=== PATIENT | male | born 1980 | race Caucasian/White ===

== ENCOUNTER 2016-10-04 11:57 | Emergency (ER) | payer SELFPAY ==
[2016-10-04 12:14] VITALS: RESP 16
[2016-10-04] MEDS ORDERED: SODIUM CHLORIDE 0.9% 1,000 ML IV STA (12:25)
[2016-10-04] MEDS ORDERED: RX INFO: IV CONTRAST WAS GIVEN 1 EACH MISC MISCELLANE PRN (12:25)
[2016-10-04] MEDS ORDERED: HYDROmorphone 1 MG/ML 1 ML SYRINGE IVP STA (12:25)
[2016-10-04 12:59] LABS: Basophils # (A) 0.1 k/uL (0-0.2); Basophils % (A) 1 %; CH 32.7; CHCM 35.6; Eosinophils # (A) 0.2 k/uL (0-0.7); Eosinophils % (A) 4 %; HCT 40.9 % (39.0-53.0); HDW 2.51; HGB 13.9 gm/dL (13.0-17.5); Luc # (Auto) 0.12; Luc % (Auto) 3; Lymphocytes # (A) 1.8 k/uL (1.0-4.8); Lymphocytes % (A) 41 %; MCH 31.3 pg (25.0-35.0); MCV 92.1 fL (80.0-100.0); Mean Platelet Volume 6.7; Monocytes # (A) 0.4 k/uL (0-1.0); Monocytes % (A) 9 %; Neutrophils # (A) 1.9 k/uL (1.3-7.7); Neutrophils % (A) 43 %; RBC 4.44 m/uL (4.30-5.90); RDW 12.5 % (11.5-15.5); WBC 4.5 k/uL (3.8-10.6); WBC (Perox) 4.43
[2016-10-04 13:09] LABS: INR 1.5 (<1.1); Partial Thromboplastin Time 31.9 sec (22.0-30.0); Prothrombin Time 14.7 sec (9.0-12.0)
[2016-10-04 13:10] LABS: ALT 33 U/L (21-72); AST 39 U/L (17-59); Alkaline Phosphatase 77 U/L (38-126); Anion Gap 9 mmol/L; Blood Urea Nitrogen 14 mg/dL (9-20); Calcium 9.2 mg/dL (8.4-10.2); Carbon Dioxide 23 mmol/L (22-30); Chloride 106 mmol/L (98-107); Glucose 141 mg/dL (74-99); Non-African American GFR(MDRD) >60 (>60 ml/min/1.73 sqM); Potassium 3.8 mmol/L (3.5-5.1); Sodium 138 mmol/L (137-145); Total Bilirubin 0.8 mg/dL (0.2-1.3); Total Protein 6.8 g/dL (6.3-8.2)
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
[2016-10-04 13:52] VITALS: PULSE 74
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
[2016-10-04 14:41] VITALS: BP 116/74; TEMP 98.2
== END 2016-10-04 14:42 | disposition home or self-care (01) ==
LOC: EC 11:57
DX: S06.0X0A Concussion without loss of consciousness, initial encounter (principal); M54.2 Cervicalgia; M54.5 Low back pain; V43.52XA Car driver injured in collision with other type car in traffic accident, initial encounter; Y92.410 Unspecified street and highway as the place of occurrence of the external cause
CPT/HCPCS: 99285; 96374; 96361 ×2; 36415; 80053; 85025; 85610; 85730; 72125; 70450; 71260; 74177; J1170; Q9967

== ENCOUNTER 2016-12-10 16:45 | Emergency (ER) | payer OTHER ==
[2016-12-10 17:02] VITALS: BP 139/89; PULSE 75; RESP 18; TEMP 98.2
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
== END 2016-12-10 18:12 | disposition home or self-care (01) ==
LOC: EC 16:45
DX: M54.5 Low back pain (principal); G89.29 Other chronic pain; Z91.041 Radiographic dye allergy status; X50.0XXA Overexertion from strenuous movement or load, initial encounter; Y93.89 Activity, other specified; Y92.69 Other specified industrial and construction area as the place of occurrence of the external cause
CPT/HCPCS: 72100; 99284

== ENCOUNTER → 2017-04-09 | Outpatient (CLI) | payer OTHER ==
--- NOTE | 2017-04-10 08:05 | MR ---
EXAMINATION TYPE: MR cervical spine wo con DATE OF EXAM: 04/09/2017 COMPARISON: 05/10/2015 HISTORY: Radiculopathy, cervical region TECHNIQUE: Multiplanar, multisequence images of the cervical spine were acquired. FINDINGS: There is a kyphosis centered at C5-6. Craniovertebral junction is normal. Spinal cord maint ains normal signal through its visualized course. C2-C3: No evidence for degenerative disc disease. No disc bulge/herniation or protrusion. No Canal stenosis. Foramina are patent bilaterally. C3-C4: There is a small central subligamentous disc herniation extending posterior to C4. No signific ant thecal sac compression is evident. No spinal canal stenosis is present. Uncovertebral joint hyper trophy with with minimal foraminal narrowing bilaterally. C4-C5: Mild disc bulging is anterior thecal sac flattening. No spinal canal stenosis is present neura l foramen are patent. C5-C6: Minimal disc bulge is present with anterior thecal sac flattening. No cord contact is evident. No spinal canal stenosis present. Mild right foraminal narrowing is present. C6-C7: No focal disc herniation is evident. Uncovertebral joint hypertrophy is bilateral mild foramin al narrowing. No spinal canal stenosis present. C7-T1: No focal disc herniation or significant disc bulge is evident. No spinal canal stenosis presen t. Facet hypertrophy and ligamentum flavum laxity contributing to moderate left foraminal narrowing. Findings appear stable from 2014. IMPRESSION: 1. Mild foraminal narrowing secondary to uncovertebral joint hypertrophy. 2. Cervical kyphosis centered at C5-6.
== END | disposition home or self-care (01) ==
LOC: RADMRIMAIN 12:20
PROVIDERS: ATTEND Family Medicine
DX: M99.71 Connective tissue and disc stenosis of intervertebral foramina of cervical region (principal); M40.202 Unspecified kyphosis, cervical region; M53.82 Other specified dorsopathies, cervical region
CPT/HCPCS: 72141

== ENCOUNTER → 2017-07-17 | Outpatient (CLI) | payer OTHER ==
[2017-07-17 14:50] VITALS: BP 123/77; PULSE 82; RESP 16
--- NOTE | 2017-07-17 17:23 | P.CONS ---
History of Present Illness - Reason for Consult Consult date: 07/17/17 - Chief Complaint Neck pain - History of Present Illness This is a 46-year-old gentleman with chronic history of neck pain with radiation to the upper thoracic spine area. The pain gets worse by neck movements. The patient tried physical therapy previously which did not give him good relief of pain. He describes his pain as an aching pain that keeps him up at night. The patient denies any bowel or bladder dysfunction or any weight loss. He occasionally feels numbness and tingling in both arms in no specific neurologic distribution. The patient tried management he many years ago but he did not like being on stronger opioids and is trying to avoid that especially with history of alcohol abuse previously. The patient denies any weakness in his upper or lower extremities. The cervical spine MRI showed uncovertebral joint hypertrophy bilaterally at C6- C7 level with similar changes at the C7-T1 level. It does show also kyphosis at C5-6 level. Past Medical History Past Medical History: No Reported History, Chest Pain / Angina Additional Past Medical History / Comment(s): Buldging disk in neck History of Any Multi-Drug Resistant Organisms: None Reported Past Surgical History: No Surgical Hx Reported Additional Past Surgical History / Comment(s): hand surgery Past Anesthesia/Blood Transfusion Reactions: No Reported Reaction Past Psychological History: Anxiety, Depression Smoking Status: Former smoker Past Alcohol Use History: Abuse, Heavy Additional Past Alcohol Use History / Comment(s): CURRENTLY 7-10 BEER WEEKLY- DOWN FROM 15 BEER DAILY. Past Drug Use History: Marijuana Medications and Allergies Allergies Allergy/AdvReac Type Severity Reaction Status Date / Time IV contrast AdvReac Nausea & Uncoded 07/17/17 14:34 Vomiting Physical Exam Vitals: Vital Signs Pulse Resp BP Pulse Ox 07/17/17 14:35 82 16 123/77 96 Intake and Output 07/17/17 07/17/17 07/17/17 06:59 14:59 22:59 Other: Weight 74.843 kg Patient Weight 07/18/17 06:59 Weight 74.843 kg - Constitutional General appearance: thin - EENT Eyes: PERRLA - Respiratory Respiratory: bilateral: CTA - Cardiovascular Rhythm: regular - Neurologic Neurologic: CNII-XII intact - Psychiatric Psychiatric: A&O x's 3, appropriate affect, intact judgment & insight Neuro exam of the upper extremities showed normal and symmetrical deep tendon reflexes and muscle strength. He has decreased range of motion of the cervical spine especially for right rotation. He has tenderness in the cervical and upper thoracic paravertebral area bilaterally. Assessment and Plan Plan: This is a 36-year-old gentleman with history of heavy alcohol usage, and occasional marijuana usage. Diagnosis: Cervical spondylosis without myelopathy, not responsive to physical therapy and conservative treatment. I think the patient may benefit from getting diagnostic cervical medial branch block for the medial branches C5, C6, and C7 bilaterally. The procedure was explained to the patient and his questions were answered. I agree with the patient about his decision to avoid using any opioids in the treatment plan. I thank you for the referral.
== END | disposition home or self-care (01) ==
LOC: PNWHC3 13:23
PROVIDERS: ATTEND Anesthesiology
DX: G89.29 Other chronic pain (principal); M54.2 Cervicalgia; M47.812 Spondylosis without myelopathy or radiculopathy, cervical region; M40.202 Unspecified kyphosis, cervical region; F12.90 Cannabis use, unspecified, uncomplicated; F10.20 Alcohol dependence, uncomplicated; F41.9 Anxiety disorder, unspecified; F32.9 Major depressive disorder, single episode, unspecified; Z98.890 Other specified postprocedural states; Z87.891 Personal history of nicotine dependence; Z79.891 Long term (current) use of opiate analgesic
CPT/HCPCS: 99211

== ENCOUNTER 2017-09-02 06:15 | Day surgery (SDC) | payer OTHER ==
[2017-08-29 15:29] VITALS: BMI 20.5
[2017-09-02 06:35] VITALS: RESP 18; TEMP 98.2
[2017-09-02] MEDS ORDERED: LACTATED RINGERS 1,000 ML IV ONE (06:41)
[2017-09-02] MEDS ORDERED: LIDOCAINE 1% 20 ML VIAL (10MG/ML) FOR IV START INTRADERMA ONE (06:42)
[2017-09-02] MEDS ORDERED: IV FLUID CONTINUATION 1,000 ML IV ONE (07:44)
[2017-09-02] MEDS ORDERED: LACTATED RINGERS 1,000 ML IV SCH (07:45)
--- NOTE | 2017-09-02 07:52 | FL ---
Fluoroscopy HISTORY: Pain 8 seconds fluoroscopy time supplied to the referring clinician. 6 intraoperative C-arm images docume nt the procedure. See dictated report from anesthesia.
[2017-09-02 08:43] VITALS: BP 117/81; PULSE 77
--- NOTE | 2017-09-02 10:55 | P.PCN ---
Date of Procedure: 09/02/17 Surgeon: Blake Shankar Pathology: none sent Condition: stable Disposition: PACU Description of Procedure: PREOPERATIVE DIAGNOSIS: Cervical spondylosis without myelopathy, cervicogenic headache. POSTOPERATIVE DIAGNOSIS: same PROCEDURES: Diagnostic bilateral C5-C6, C6-C7, C7-T1 medial branch block with fluoroscopic guidance ANESTHESIA: Local with 1% lidocaine; conscious sedation EBL: Minimal PROCEDURE INDICATION: This is a patient with neck pain and headaches secondary to cervical arthropathy unresponsive to more conservative treatments. PROCEDURE DESCRIPTION / TECHNIQUE: The patient was seen and identified in the preoperative area. Risks, benefits, complications, and alternatives were discussed with the patient (including but not limited to incomplete pain relief , bleeding, infection, nerve damage, and allergies to medications), the patient agreed to proceed with the procedure and signed the consent after all questions were answered. IV was started. Vital signs remained stable throughout the procedure. Patient was taken to the OR and time out was completed. The patient was placed in the prone position on the procedure table. A pillow was placed under the patients chest to increase the cervical interlaminar space. The cervical area was prepped and draped in the usual sterile fashion. Critical pause was taken. Vital signs were closely monitored during the procedure. Conscious sedation was used during the procedure to decrease patients anxiety. Using cross-table lateral fluoroscopy, the centroid of the trapezoid of right C5 , was identified, marked, and localized with 1% lidocaine. Subsequently, a 22- gauge 3.5-inch spinal needle was advanced guided by fluoroscopy to the centroid of the trapezoid of C5. Needle tip position was confirmed at the centroid of the trapezoids of C5 with anteroposterior fluoroscopy. Subsequently, 1 ml of a combination of 10 mg Decadron and 5 ml of preservative-free Bupivacaine 0.5% was injected after negative aspiration for blood and CSF. Needle was then removed intact; the same procedure was repeated at the right C6 and C7 levels and then the left C5, C6, and C7 levels. COMPLICATIONS: No acute complications. COMMENTS: DISPOSITION / PLANS: The patient was placed in a supine position and transferred to the recovery area in a stable condition for observation and was discharged from the recovery room after meeting discharge criteria. Home discharge instructions given to the patient by the staff. The patient was reexamined prior to discharge and there were no issues. The patient will schedule a repeat CMBB in 3-4 weeks.
== END 2017-09-02 08:56 | disposition home or self-care (01) ==
LOC: ORPAIN 06:15
PROVIDERS: ATTEND Anesthesiology
DX: M47.812 Spondylosis without myelopathy or radiculopathy, cervical region (principal); R51 Headache; Z91.041 Radiographic dye allergy status
CPT/HCPCS: 64490; 64491; 64492; J2250; J1100; 99152

== ENCOUNTER → 2017-10-08 | Outpatient (CLI) | payer OTHER ==
--- NOTE | 2017-10-09 09:53 | MR ---
MR right foot without contrast HISTORY: Right foot pain Multiplanar multisequence imaging through the right foot There is abnormal signal at the site of patient's symptomatology at the level of the distal second me tatarsal extending into the region between the first and second digits, intermediate signal is presen t on T1, increased signal on T2-weighted sequence is present. No contrast administered to assess for enhancement. No evident volar plate disruption. No fluid collections are evident. Joint fluid present along the digits is thought to be normal. IMPRESSION: Findings are not classic for Cohen's neuroma or indicative or volar plate disruption, hi gh on differential from patient's history. Findings could be indicative of callus formation although more typical of a diabetic patient. Findings not typical of fibromatosis. Consider reaction to mechan ical stress. Follow-up as indicated. This case received internal peer review.
== END ==
LOC: RADMRIMAIN 16:43
PROVIDERS: ATTEND Orthopaedic Surgery Foot and Ankle Surgery
DX: M79.671 Pain in right foot (principal)

== ENCOUNTER → 2018-04-07 | Outpatient (CLI) | payer OTHER ==
--- NOTE | 2018-04-07 13:52 | US ---
EXAMINATION TYPE: US extremity nonvasc complete RT DATE OF EXAM: 04/07/2018 COMPARISON: Correlation MRI foot 10/08/2017 CLINICAL HISTORY: 37-year-old male G57.51 Nerve Damage Tarsal Tunnel. Additional customer support executive obtained history: Last August was kneeling and stood up suddenly, felt pop and pain at ball of foot, prior MRI here, US at [facility] showed pathology per pt, scheduled for MRI he re Apr 21, scheduled for foot surgery after that. TECHNIQUE: Targeted sonographic examination of the tarsal tunnel, medial ankle followed by targeted u ltrasound at the site of patient's pain along the ball of the foot. Findings: Multiple ultrasound images are obtained of the medial right ankle for assessment of the tarsal tunnel . Posterior tibial and flexor digitorum longus tendons are visualized as well as the adjacent neurova scular bundle. No abnormal thickening or enlargement is seen of the tibial nerve to suggest a posttra umatic neuroma. Additional targeted scanning along the ball of the foot at the patient directed site of pain correspo nding to the third webspace between the third and fourth distal metatarsals. The customer support executive identifi es a somewhat lobulated hypoechoic structure measuring 1.8 x 0.8 cm at this site. IMPRESSION: 1. Targeted scanning medial ankle along the tarsal tunnel shows no evidence for posttraumatic neuroma of the tibial nerve. 2. Targeted scanning along the ball of the foot at the patient directed site of pain corresponds to t he third webspace. There is a lobulated structure here measuring 1.8 x 0.8 cm equivocal between an in termetatarsal bursal effusion or Cohen's neuroma. Clinically correlate.
== END | disposition home or self-care (01) ==
LOC: RADUSWWP 09:44
PROVIDERS: ATTEND Orthopaedic Surgery
DX: G57.51 Tarsal tunnel syndrome, right lower limb (principal); M89.8X7 Other specified disorders of bone, ankle and foot

== ENCOUNTER 2018-04-21 19:43 | Emergency (ER) | payer OTHER ==
[2018-04-21 20:10] VITALS: TEMP 99.4
[2018-04-21] MEDS ORDERED: SODIUM CHLORIDE 0.9% 1,000 ML IV STA (20:40)
[2018-04-21] MEDS ORDERED: ONDANSETRON 4 MG/2 ML VIAL IVP STA (20:40)
[2018-04-21] MEDS ORDERED: KETOROLAC 30 MG/ML 1 ML VIAL IVP STA (20:41)
[2018-04-21] MEDS ORDERED: ACETAMINOPHEN TAB 500 MG TAB PO STA (20:41)
--- NOTE | 2018-04-21 20:53 | ED ---
Fever HPI - General Chief Complaint: Fever Stated Complaint: Possible flu Time Seen by Provider: 04/21/18 20:09 Source: patient, RN notes reviewed, old records reviewed Mode of arrival: ambulatory Limitations: no limitations - History of Present Illness Initial Comments: Patient is a 37 yea rold male, whom presents to ED with CC of chills, vomiting, and body aches for one day. Patient is concerned that he may have the flu. He denies abdominal pain or tenderness. Patient presents to ED with his whife whom reports he has been up all night. Patient has had a slight and sorethroat. - Related Data Previous Rx's Medication Instructions Recorded Ondansetron Odt [Zofran Odt] 4 mg PO Q8HR PRN #12 tab 04/21/18 Allergies Allergy/AdvReac Type Severity Reaction Status Date / Time Iodinated Contrast- Oral and AdvReac Nausea & Verified 04/21/18 20:21 IV Dye Vomiting Review of Systems ROS Statement: Those systems with pertinent positive or pertinent negative responses have been documented in the HPI. ROS Other: All systems not noted in ROS Statement are negative. 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 PAIN IN UPPER BACK ALSO. OCC NT IN ARMS/HANDS. RECENT INJURY RT FOOT, POSS TORN TENDON. History of Any Multi-Drug Resistant Organisms: None Reported Past Surgical History: Orthopedic Surgery Additional Past Surgical History / Comment(s): RT 3RD FINGER Surgery. Past Anesthesia/Blood Transfusion Reactions: No Reported Reaction Past Psychological History: Anxiety, Depression Smoking Status: Former smoker Past Alcohol Use History: Occasional Past Drug Use History: None Reported - Past Family History Mother Family Medical History: No Reported History General Exam - General Exam Comments Initial Comments: 37 year old male, wearing mask, appears in no acute distress. Limitations: no limitations General appearance: alert, in no apparent distress Head exam: Present: atraumatic, normocephalic, normal inspection Eye exam: Present: normal appearance, PERRL, EOMI. Absent: scleral icterus, conjunctival injection, periorbital swelling ENT exam: Present: normal exam, mucous membranes moist. Absent: normal oropharynx (minimal erythema, no exudate) Neck exam: Present: normal inspection. Absent: tenderness, meningismus, lymphadenopathy Respiratory exam: Present: normal lung sounds bilaterally. Absent: respiratory distress, wheezes, rales, rhonchi, stridor Cardiovascular Exam: Present: regular rate, normal rhythm, normal heart sounds. Absent: systolic murmur, diastolic murmur, rubs, gallop, clicks GI/Abdominal exam: Present: soft, normal bowel sounds. Absent: distended, tenderness, guarding, rebound, rigid Back exam: Present: normal inspection Neurological exam: Present: alert, oriented X3, CN II-XII intact Psychiatric exam: Present: normal affect, normal mood Skin exam: Present: warm, dry, intact, normal color. Absent: rash Course Vital Signs 04/21/18 04/21/18 04/21/18 20:06 20:10 22:23 Temperature 99.4 F 99.4 F Pulse Rate 80 73 Respiratory 20 16 Rate Blood Pressure 108/98 114/82 O2 Sat by Pulse 99 99 Oximetry Medical Decision Making - Medical Decision Making bassamnt is a 37 year old male with body aches, vomiting and low grade fever for one day.Patient has noabdominal pain or tenderness. Patient was started on iv fluids, patient has not had any motrin or tylenol. Was given some. At this time labs were unremakeagle. Patient feels much better. Discussed influenza testing is negatie. Discussed he is likely suffering from viral gastroenteritis. Discussed that if patient started to have one specific bother symptoms fdhe can return for reevaluation for testing and radiology at that time. Patient agrees. will discharge him with zofran - Lab Data Result diagrams: 04/21/18 21:05 04/21/18 21:05 Lab Results 04/21/18 04/21/18 04/21/18 Range/Units 21:05 21:05 21:05 WBC 12.3 H (3.8-10.6) k/uL RBC 4.96 (4.30-5.90) m/uL Hgb 15.4 (13.0-17.5) gm/dL Hct 46.9 (39.0-53.0) % MCV 94.6 (80.0-100.0) fL MCH 31.1 (25.0-35.0) pg MCHC 32.9 (31.0-37.0) g/dL RDW 12.0 (11.5-15.5) % Plt Count 313 (150-450) k/uL Neutrophils % 69 % Lymphocytes % 19 % Monocytes % 8 % Eosinophils % 2 % Basophils % 1 % Neutrophils # 8.5 H (1.3-7.7) k/uL Lymphocytes # 2.4 (1.0-4.8) k/uL Monocytes # 0.9 (0-1.0) k/uL Eosinophils # 0.2 (0-0.7) k/uL Basophils # 0.1 (0-0.2) k/uL Sodium 137 (137-145) mmol/L Potassium 4.5 (3.5-5.1) mmol/L Chloride 102 (98-107) mmol/L Carbon Dioxide 28 (22-30) mmol/L Anion Gap 7 mmol/L BUN 13 (9-20) mg/dL Creatinine 0.75 (0.66-1.25) mg/dL Est GFR (CKD-EPI)AfAm >90 (>60 ml/min/1.73 sqM) Est GFR (CKD-EPI)NonAf >90 (>60 ml/min/1.73 sqM) Glucose 82 (74-99) mg/dL Calcium 10.1 (8.4-10.2) mg/dL Total Bilirubin 1.1 (0.2-1.3) mg/dL AST 57 (17-59) U/L ALT 53 (21-72) U/L Alkaline Phosphatase 84 (38-126) U/L Total Protein 7.5 (6.3-8.2) g/dL Albumin 4.3 (3.5-5.0) g/dL Amylase 84 (30-110) U/L Lipase 94 (23-300) U/L Urine Color Urine Appearance (Clear) Urine pH (5.0-8.0) Ur Specific [place] (1.001-1.035) Urine Protein (Negative) Urine Glucose (UA) (Negative) Urine Ketones (Negative) Urine Blood (Negative) Urine Nitrite (Negative) Urine Bilirubin (Negative) Urine Urobilinogen (<2.0) mg/dL Ur Leukocyte Esterase (Negative) Influenza Type A RNA Not Detected (Not Detectd) Influenza Type B (PCR) Not Detected (Not Detectd) 04/21/18 Range/Units 21:42 WBC (3.8-10.6) k/uL RBC (4.30-5.90) m/uL Hgb (13.0-17.5) gm/dL Hct (39.0-53.0) % MCV (80.0-100.0) fL MCH (25.0-35.0) pg MCHC (31.0-37.0) g/dL RDW (11.5-15.5) % Plt Count (150-450) k/uL Neutrophils % % Lymphocytes % % Monocytes % % Eosinophils % % Basophils % % Neutrophils # (1.3-7.7) k/uL Lymphocytes # (1.0-4.8) k/uL Monocytes # (0-1.0) k/uL Eosinophils # (0-0.7) k/uL Basophils # (0-0.2) k/uL Sodium (137-145) mmol/L Potassium (3.5-5.1) mmol/L Chloride (98-107) mmol/L Carbon Dioxide (22-30) mmol/L Anion Gap mmol/L BUN (9-20) mg/dL Creatinine (0.66-1.25) mg/dL Est GFR (CKD-EPI)AfAm (>60 ml/min/1.73 sqM) Est GFR (CKD-EPI)NonAf (>60 ml/min/1.73 sqM) Glucose (74-99) mg/dL Calcium (8.4-10.2) mg/dL Total Bilirubin (0.2-1.3) mg/dL AST (17-59) U/L ALT (21-72) U/L Alkaline Phosphatase (38-126) U/L Total Protein (6.3-8.2) g/dL Albumin (3.5-5.0) g/dL Amylase (30-110) U/L Lipase (23-300) U/L Urine Color Yellow Urine Appearance Clear (Clear) Urine pH 7.5 (5.0-8.0) Ur Specific [place] 1.009 (1.001-1.035) Urine Protein Negative (Negative) Urine Glucose (UA) Negative (Negative) Urine Ketones Negative (Negative) Urine Blood Negative (Negative) Urine Nitrite Negative (Negative) Urine Bilirubin Negative (Negative) Urine Urobilinogen <2.0 (<2.0) mg/dL Ur Leukocyte Esterase Negative (Negative) Influenza Type A RNA (Not Detectd) Influenza Type B (PCR) (Not Detectd) Disposition Clinical Impression: Nausea & vomiting, Viral syndrome Disposition: HOME SELF-CARE Condition: Good Instructions: Gastroenteritis (ED) Additional Instructions: Patient was rest, follow-up with primary care provider. There is any alarming signs or symptoms occur please return to emergency department for reevaluation. Prescriptions: Ondansetron Odt [Zofran Odt] 4 mg PO Q8HR PRN #12 tab PRN Reason: Nausea Is patient prescribed a controlled substance at d/c from ED?: No Referrals: Pawan Quintana Jr, DO [Primary Care Provider] - 1-2 days Time of Disposition: 22:16
[2018-04-21 21:27] LABS: Basophils # (A) 0.1 k/uL (0-0.2); Basophils % (A) 1 %; Eosinophils # (A) 0.2 k/uL (0-0.7); Eosinophils % (A) 2 %; HCT 46.9 % (39.0-53.0); HGB 15.4 gm/dL (13.0-17.5); Lymphocytes # (A) 2.4 k/uL (1.0-4.8); Lymphocytes % (A) 19 %; MCH 31.1 pg (25.0-35.0); MCHC 32.9 g/dL (31.0-37.0); MCV 94.6 fL (80.0-100.0); Mean Platelet Volume 6.2; Monocytes # (A) 0.9 k/uL (0-1.0); Monocytes % (A) 8 %; Neutrophils # (A) 8.5 k/uL (1.3-7.7); Neutrophils % (A) 69 %; Platelet Count 313 k/uL (150-450); RBC 4.96 m/uL (4.30-5.90); WBC 12.3 k/uL (3.8-10.6)
[2018-04-21 21:34] LABS: ALT 53 U/L (21-72); AST 57 U/L (17-59); Albumin 4.3 g/dL (3.5-5.0); Alkaline Phosphatase 84 U/L (38-126); Amylase 84 U/L (30-110); Anion Gap 7 mmol/L; Blood Urea Nitrogen 13 mg/dL (9-20); Calcium 10.1 mg/dL (8.4-10.2); Carbon Dioxide 28 mmol/L (22-30); Chloride 102 mmol/L (98-107); Glucose 82 mg/dL (74-99); Lipase 94 U/L (23-300); Potassium 4.5 mmol/L (3.5-5.1); Sodium 137 mmol/L (137-145); Total Bilirubin 1.1 mg/dL (0.2-1.3); Total Protein 7.5 g/dL (6.3-8.2)
[2018-04-21 21:48] LABS: Appearance,Urine Clear (Clear); Bilirubin,Urine Negative (Negative); Blood,Urine Negative (Negative); Color,Urine Yellow; Glucose,Urine (UA) Negative (Negative); Ketones,Urine Negative (Negative); Leukocyte Esterase,Urine Negative (Negative); Nitrite,Urine Negative (Negative); PH, Urine 7.5 (5.0-8.0); Protein,Urine Negative (Negative); Specific Gravity,Urine 1.009 (1.001-1.035); Urobilinogen,Urine <2.0 mg/dL (<2.0)
[2018-04-21 22:28] VITALS: BP 114/82; PULSE 73; RESP 16
== END 2018-04-21 22:23 | disposition home or self-care (01) ==
LOC: EC 19:43
DX: B34.9 Viral infection, unspecified (principal); R11.2 Nausea with vomiting, unspecified; Z87.891 Personal history of nicotine dependence; Z91.041 Radiographic dye allergy status
CPT/HCPCS: 99284 ×2; 96374 ×2; 96375 ×2; 96361 ×2; 36415; 80053; 82150; 83690; 85025; 81003; 87502; J2405; J1885

== ENCOUNTER → 2018-04-21 | Outpatient (CLI) | payer OTHER ==
--- NOTE | 2018-04-22 02:54 | MR ---
EXAMINATION TYPE: MR ankle RT wo con DATE OF EXAM: 04/21/2018 COMPARISON: HISTORY: Tarsal Tunnel Nerve damage Standard multiplanar, multisequence MRI departmental protocol Multiplanar, multisequence images of the right ankle were acquired. FINDINGS: The ankle mortise is anatomic. The collateral ligaments appear intact. The medial and later al flexor tendons of the ankle appear intact. There is mild ankle joint effusion. The Achilles tendon is intact. The intertarsal joint spaces are fairly normal. I see no focal bone destruction. There is some low signal along the posterior tibial tendon near its insertion on the navicular and cuneiform bone. There is slight thickening. The other flexor medial tendons appear intact. I see no focal bone destruction. IMPRESSION: There is some low signal and thickening of the posterior tibial tendon on the medial aspect of the mi dfoot that could relate to scar tissue. Posterior tibial nerve is probably involved. No fracture seen . No evidence of ligamentous tear. Small ankle joint effusion consistent with minimal synovitis.
== END | disposition home or self-care (01) ==
LOC: RADMRIMAIN 14:06
PROVIDERS: ATTEND Orthopaedic Surgery
DX: M67.873 Other specified disorders of tendon, right ankle and foot (principal); M25.471 Effusion, right ankle

== ENCOUNTER 2018-10-13 22:20 | Emergency (ER) | payer OTHER ==
[2018-10-13] MEDS ORDERED: SODIUM CHLORIDE 0.9% 1,000 ML IV STA (22:34)
[2018-10-13] MEDS ORDERED: DIAZEPAM 5 MG/ML 2 ML INJ IVP STA (22:34)
[2018-10-13] MEDS ORDERED: GLUCAGON 1 MG/ML VIAL IVP STA (22:34)
--- NOTE | 2018-10-13 22:34 | ED ---
Nausea/Vomiting/Diarrhea HPI - General Chief complaint: Nausea/Vomiting/Diarrhea Stated complaint: Something stuck in throat Time Seen by Provider: 10/13/18 22:28 Source: patient, family, RN notes reviewed, old records reviewed Mode of arrival: ambulatory Limitations: no limitations - History of Present Illness Initial comments: This is a 38-year-old male the ER for evaluation. Patient resents today for evaluation of something caught in his throat, has had have episodes happened before was able to bypass and get the food to swallow. Patient states he is eating some steak tonight when this episode began. Feels like her stomach on the middle of his chest wall. No shortness of breath. Denies any complaints. Patient is unable to swallow or drink without spitting everything back up MD complaint: nausea (After eating secondary to esophageal foreign body) -: hour(s) Description of Vomiting: watery (The patient drinks water it comes back up unable to tolerate secretions) Associated Abdominal Pain: Yes (Just feels discomfort substernally) Radiation: none Severity: moderate Severity scale (1-10): 4 Worsens with: eating Associated Symptoms: denies other symptoms - Related Data Home Medications Medication Instructions Recorded Confirmed No Known Home Medications 10/13/18 10/13/18 Allergies Allergy/AdvReac Type Severity Reaction Status Date / Time Iodinated Contrast- Oral and AdvReac Nausea & Verified 10/13/18 22:33 IV Dye Vomiting Review of Systems ROS Statement: Those systems with pertinent positive or pertinent negative responses have been documented in the HPI. ROS Other: All systems not noted in ROS Statement are negative. 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 PAIN IN UPP ER BACK ALSO. OCC NT IN ARMS/HANDS. RECENT INJURY RT FOOT, POSS TORN TENDON. History of Any Multi-Drug Resistant Organisms: None Reported Past Surgical History: Orthopedic Surgery Additional Past Surgical History / Comment(s): RT 3RD FINGER Surgery. Past Anesthesia/Blood Transfusion Reactions: No Reported Reaction Past Psychological History: Anxiety, Depression Smoking Status: Former smoker Past Alcohol Use History: Occasional Past Drug Use History: None Reported - Past Family History Mother Family Medical History: No Reported History General Exam Limitations: no limitations General appearance: alert, in no apparent distress Head exam: Present: atraumatic, normocephalic, normal inspection Eye exam: Present: normal appearance, PERRL, EOMI. Absent: scleral icterus, conjunctival injection, periorbital swelling ENT exam: Present: normal exam, mucous membranes moist Neck exam: Present: normal inspection. Absent: tenderness, meningismus, lymphadenopathy Respiratory exam: Present: normal lung sounds bilaterally. Absent: respiratory distress, wheezes, rales, rhonchi, stridor Cardiovascular Exam: Present: regular rate, normal rhythm, normal heart sounds. Absent: systolic murmur, diastolic murmur, rubs, gallop, clicks GI/Abdominal exam: Present: soft, normal bowel sounds. Absent: distended, tenderness, guarding, rebound, rigid Extremities exam: Present: normal inspection, full ROM, normal capillary refill. Absent: tenderness, pedal edema, joint swelling, calf tenderness Back exam: Present: normal inspection Neurological exam: Present: alert, oriented X3, CN II-XII intact Psychiatric exam: Present: normal affect, normal mood Skin exam: Present: warm, dry, intact, normal color. Absent: rash Course Vital Signs 10/13/18 22:21 Temperature 98.4 F Pulse Rate 119 H Respiratory 20 Rate Blood Pressure 91/63 O2 Sat by Pulse 96 Oximetry - Reevaluation(s) Reevaluation #1: 10/13/18 23:41 Medical record reviewed Reevaluation #2: 10/13/18 23:41 Patient unable to tolerate secretions or swallow liquids, they do come right back up Reevaluation #3: 10/13/18 23:42 GI: For evaluation of patient Medical Decision Making - Medical Decision Making 38 male the ER for esophageal foreign body. Foreign bodies resolved by GI here in the ER patient can be discharged home - Lab Data Result diagrams: 10/13/18 22:36 10/13/18 22:36 Lab Results 10/13/18 10/13/18 Range/Units 22:36 22:36 WBC 10.9 H (3.8-10.6) k/uL RBC 5.17 (4.30-5.90) m/uL Hgb 15.9 (13.0-17.5) gm/dL Hct 47.2 (39.0-53.0) % MCV 91.4 (80.0-100.0) fL MCH 30.8 (25.0-35.0) pg MCHC 33.6 (31.0-37.0) g/dL RDW 13.2 (11.5-15.5) % Plt Count 379 (150-450) k/uL Neutrophils % 64 % Lymphocytes % 25 % Monocytes % 5 % Eosinophils % 3 % Basophils % 1 % Neutrophils # 7.0 (1.3-7.7) k/uL Lymphocytes # 2.7 (1.0-4.8) k/uL Monocytes # 0.6 (0-1.0) k/uL Eosinophils # 0.3 (0-0.7) k/uL Basophils # 0.1 (0-0.2) k/uL Sodium 143 (137-145) mmol/L Potassium 4.4 (3.5-5.1) mmol/L Chloride 108 H (98-107) mmol/L Carbon Dioxide 24 (22-30) mmol/L Anion Gap 11 mmol/L BUN 14 (9-20) mg/dL Creatinine 0.63 L (0.66-1.25) mg/dL Est GFR (CKD-EPI)AfAm >90 (>60 ml/min/1.73 sqM) Est GFR (CKD-EPI)NonAf >90 (>60 ml/min/1.73 sqM) Glucose 72 L (74-99) mg/dL Calcium 9.6 (8.4-10.2) mg/dL Total Bilirubin 0.6 (0.2-1.3) mg/dL AST 45 (17-59) U/L ALT 38 (21-72) U/L Alkaline Phosphatase 98 (38-126) U/L Total Protein 7.6 (6.3-8.2) g/dL Albumin 4.7 (3.5-5.0) g/dL Lipase 96 (23-300) U/L Disposition Clinical Impression: Nausea & vomiting, Esophageal foreign body Disposition: HOME SELF-CARE Condition: Good Instructions (If sedation given, give patient instructions): Esophageal Foreign Body (ED) Is patient prescribed a controlled substance at d/c from ED?: No Referrals: Pawan Quintana Jr, [Primary Care Provider] - 1-2 days
[2018-10-13 22:48] LABS: Basophils # (A) 0.1 k/uL (0-0.2); Basophils % (A) 1 %; Eosinophils # (A) 0.3 k/uL (0-0.7); Eosinophils % (A) 3 %; HCT 47.2 % (39.0-53.0); HGB 15.9 gm/dL (13.0-17.5); Lymphocytes # (A) 2.7 k/uL (1.0-4.8); Lymphocytes % (A) 25 %; MCH 30.8 pg (25.0-35.0); MCHC 33.6 g/dL (31.0-37.0); MCV 91.4 fL (80.0-100.0); Mean Platelet Volume 6.5; Monocytes # (A) 0.6 k/uL (0-1.0); Monocytes % (A) 5 %; Neutrophils % (A) 64 %; Platelet Count 379 k/uL (150-450); RBC 5.17 m/uL (4.30-5.90); RDW 13.2 % (11.5-15.5); WBC 10.9 k/uL (3.8-10.6)
[2018-10-13 22:59] LABS: ALT 38 U/L (21-72); AST 45 U/L (17-59); Albumin 4.7 g/dL (3.5-5.0); Alkaline Phosphatase 98 U/L (38-126); Anion Gap 11 mmol/L; Blood Urea Nitrogen 14 mg/dL (9-20); Calcium 9.6 mg/dL (8.4-10.2); Carbon Dioxide 24 mmol/L (22-30); Chloride 108 mmol/L (98-107); Glucose 72 mg/dL (74-99); Lipase 96 U/L (23-300); Potassium 4.4 mmol/L (3.5-5.1); Sodium 143 mmol/L (137-145); Total Bilirubin 0.6 mg/dL (0.2-1.3); Total Protein 7.6 g/dL (6.3-8.2)
--- NOTE | 2018-10-13 23:19 | XR ---
EXAM: XR Chest, 1 View CLINICAL HISTORY: Pain TECHNIQUE: Frontal view of the chest. COMPARISON: 11/01/15 FINDINGS: Lungs: Unremarkable. No consolidation. Pleural space: Unremarkable. No pneumothorax. Heart: Unremarkable. No cardiomegaly. Mediastinum: Unremarkable. Bones/joints: Unremarkable. IMPRESSION: No acute abnormality. No change from prior study
[2018-10-14] MEDS ORDERED: SODIUM CHLORIDE 0.9% 500 ML 500 ML IV ONE (00:49)
[2018-10-14] MEDS ORDERED: LIDOCAINE 1% INJ 10MG/ML (20 ML MDV) ONE (01:23)
[2018-10-14] MEDS ORDERED: PROPOFOL 10 MG/ML 20 ML VIAL IV ONE (01:23)
[2018-10-14] MEDS ORDERED: fentaNYL (PF) 50 MCG/ML 2 ML AMP ONE (01:23)
[2018-10-14 02:35] VITALS: BP 109/69; PULSE 89; RESP 16; TEMP 98.1
--- NOTE | 2018-10-14 02:40 | P.CONS ---
History of Present Illness - Reason for Consult Consult date: 10/14/18 Foreign body Requesting physician: Willard Castillo - Chief Complaint Food in esophagus - History of Present Illness 38-year-old male who presented to the hospital with complaints of a foreign body stuck in his esophagus. The patient reports that he had been eating all day but that he presented to the hospital after developing nausea, vomiting and inability to tolerate food or liquids after eating a piece of steak. He reports trying to get the food down with [place] and water but was unable to do so. He reports 1 similar episode in the past also with steak during which he drank a lot of water and was able to have resolution of his symptoms. He denies ever having to present to the hospital with these complaints. He denies any dysphagia or reflux at baseline. The patient is not on PPI therapy or H2 antagonist therapy at home. He is never had endoscopy in the past. Review of Systems REVIEW OF SYSTEMS: CONSTITUTIONAL: Denies any fevers, chills, weight change or fatigue. CARDIOVASCULAR: Denies any chest pain, palpitations high or low blood pressures RESPIRATORY: Denies any shortness of breath, hemoptysis or cough. GENITOURINARY: No dysuria or hematuria. MUSCULOSKELETAL: No weakness reported. SKIN: Denies any new rashes or lesions, jaundice or pallor. PSYCHIATRIC: Denies any depression or anxiety. NEUROLOGY: Denies headache, denies any new focal deficits. EARS/NOSE/THROAT: No recent hearing change, congestion, nasal discharge or sore throat. EYES: No pain in eyes, discharge or change in vision. GASTROINTESTINAL: As per HPI. 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 PAIN IN UPPER BACK ALSO. OCC NT IN ARMS/HANDS. RECENT INJURY RT FOOT, POSS TORN TENDON. History of Any Multi-Drug Resistant Organisms: None Reported Past Surgical History: Orthopedic Surgery Additional Past Surgical History / Comment(s): RT 3RD FINGER Surgery. Past Anesthesia/Blood Transfusion Reactions: No Reported Reaction Past Psychological History: Anxiety, Depression Smoking Status: Former smoker Past Alcohol Use History: Occasional Past Drug Use History: None Reported Additional History: Family history: Reviewed with the patient and noncontributory to current medical presentation. - Past Family History Mother Family Medical History: No Reported History Medications and Allergies Home Medications Medication Instructions Recorded Confirmed Type No Known Home Medications 10/13/18 10/13/18 History Allergies Allergy/AdvReac Type Severity Reaction Status Date / Time Iodinated Contrast- Oral and AdvReac Nausea & Verified 10/13/18 22:33 IV Dye Vomiting Physical Exam Vitals: Vital Signs Temp Pulse Resp BP Pulse Ox 10/13/18 22:21 98.4 F 119 H 20 91/63 96 Intake and Output 10/13/18 10/13/18 10/14/18 14:59 22:59 06:59 Intake Total 400 Balance 400 Intake: IV 400 Other: Weight 74.843 kg On physical examination, patient appears comfortable in no apparent distress. HEAD: Normocephalic, atraumatic. EYES: No scleral icterus. No conjunctival injection. MOUTH: No lesions, tongue midline. NECK: Trachea midline, no gross abnormalities. CHEST: Clear to auscultation with no wheezing or rhonchi appreciated. HEART: Regular rate and rhythm. ABDOMEN: Soft, obese. Bowel sounds are positive. No organomegaly. No guarding or rigidity. EXTREMITIES: No pedal edema. SKIN: No rashes, no jaundice. NEUROLOGIC: Alert and oriented x3. No focal deficits. Results CBC & Chem 7: 10/13/18 22:36 10/13/18 22:36 Labs: Abnormal Lab Results - Last 24 Hours (Table) 10/13/18 10/13/18 Range/Units 22:36 22:36 WBC 10.9 H (3.8-10.6) k/uL Chloride 108 H (98-107) mmol/L Creatinine 0.63 L (0.66-1.25) mg/dL Glucose 72 L (74-99) mg/dL Assessment and Plan (1) Esophageal foreign body Narrative/Plan: 38-year-old who presents to the hospital with complaints of foreign body. The patient reports he is eating when he develops symptoms of nausea, vomiting, inability to tolerate water and the sensation of a foreign body. He reports 1 similar episode in the past which resolved on its own and has never required hospitalization or endoscopy for these symptoms. Current Visit: Yes Status: Acute Code(s): T18.108A - UNSP FOREIGN BODY IN ESOPHAGUS CAUSING OTH INJURY, INIT SNOMED Code(s): 16273730 (2) Nausea & vomiting Current Visit: Yes Status: Acute Code(s): R11.2 - NAUSEA WITH VOMITING, UNSPECIFIED SNOMED Code(s): 04251829 Plan: Supportive care Nothing by mouth Plan for emergent EGD Further recommendations pending findings of EGD Thank you for allowing us to participate in the care of the patient we will continue to follow
--- NOTE | 2018-10-14 02:49 | P.PCN ---
Date of Procedure: 10/14/18 Description of Procedure: BRIEF HISTORY: 38-year-old male who presented to the hospital with complaints of a foreign body stuck in his esophagus. The patient reports that he had been eating all day but that he presented to the hospital after developing nausea, vomiting and inability to tolerate food or liquids after eating a piece of steak. He reports trying to get the food down with [place] and water but was unable to do so. He reports 1 similar episode in the past also with steak during which he drank a lot of water and was able to have resolution of his symptoms. He denies ever having to present to the hospital with these complaints. He denies any dysphagia or reflux at baseline. The patient is not on PPI therapy or H2 antagonist therapy at home. He is never had endoscopy in the past. PROCEDURE PERFORMED: Esophagogastroduodenoscopy with foreign body removal and biopsy. PREOPERATIVE DIAGNOSIS: Foreign body. ESTIMATED BLOOD LOSS: Minimal. IV sedation per anesthesia. PROCEDURE: After informed consent was obtained, the patient was brought into the endoscopy unit. IV sedation was administered by Anesthesia under continuous monitoring. Initially the Olympus GIF-190 video endoscope was inserted into the mouth. Esophagus intubated without any difficulty and the scope was advanced to the distal esophagus where a large piece of meat was seen obstructing the esophagus. The scope was then used to gently advance the food into the stomach.. It was then gradually advanced into the stomach and duodenum and carefully examined. The bulb and the second part of the duodenum appeared normal and were biopsied. The scope at this time was withdrawn to the stomach, adequately insufflated with air, and upon careful examination, mucosa of the antrum, body, cardia and the fundus appeared grossly normal, the previously seen food debris was noted in the fundus of the stomach. There was mild scattered erythema of the antrum and body suggestive of mild gastritis which was biopsied. The scope was then withdrawn into the esophagus. The GE junction was located at 45 cm from the incisors. Erythema and edema in the distal esophagus at the place of previous food impaction was noted. Biopsies of the midesophagus were taken. The patient tolerated the procedure well. IMPRESSION: 1. Foreign body in the distal esophagus removed with gentle pressure and advancement into the stomach. 2. Mild gastritis antrum and body, biopsied. Duodenal biopsies. Mid esophageal biopsies. Distal esophagitis. RECOMMENDATIONS: The findings of this examination were discussed with the patient and his friend. Okay for discharge from GI. Would recommend daily PPI use. Await pathology from biopsies. Patient should follow-up with GI within the next 4 months for further instruction.
== END 2018-10-14 02:35 | disposition home or self-care (01) ==
LOC: EC 22:20
DX: T18.128A Food in esophagus causing other injury, initial encounter (principal); R11.2 Nausea with vomiting, unspecified; Z87.891 Personal history of nicotine dependence; Z91.041 Radiographic dye allergy status
CPT/HCPCS: 99285 ×2; 96374 ×2; 96375 ×2; 96361 ×4; 36415; 88305; 80053; 83690; 85025; 71045; 43239; 43247; J1610; J3360; J2001; J3010; J2704

== ENCOUNTER 2019-03-31 13:48 | Emergency (ER) | payer OTHER ==
[2019-03-31 13:55] VITALS: BP 120/71; PULSE 83; RESP 18; TEMP 97.8
[2019-03-31] MEDS ORDERED: DIAZEPAM 5 MG/ML 2 ML INJ IVP STA (14:18)
[2019-03-31] MEDS ORDERED: KETOROLAC 60 MG/2 ML VIAL IVP STA (14:18)
--- NOTE | 2019-03-31 14:29 | ED ---
General Adult HPI - General Chief complaint: Back Pain/Injury Stated complaint: Lower back pain Time Seen by Provider: 03/31/19 13:55 Source: patient, RN notes reviewed, old records reviewed Mode of arrival: ambulatory Limitations: no limitations - History of Present Illness Initial comments: This is a 38-year-old male who presents emergency department stating that he has a previous history of some back problems. Patient states he was wrestling in the snow with his girlfriend when he grabbed her to try throat her started having lower back pain that he described as severe and difficult to move. Patient states any movement seems to increase the pain. Patient did however drive himself in. Patient denies any numbness or weakness patient denies any urinary incontinence or retention. Patient is able to move all 4 extremities however it is painful anytime he tries to lift his legs. - Related Data Home Medications Medication Instructions Recorded Confirmed No Known Home Medications 10/13/18 10/13/18 Allergies Allergy/AdvReac Type Severity Reaction Status Date / Time Iodinated Contrast Media AdvReac Nausea & Verified 03/31/19 13:53 [Iodinated Contrast- Oral Vomiting and IV Dye] Review of Systems ROS Statement: Those systems with pertinent positive or pertinent negative responses have been documented in the HPI. ROS Other: All systems not noted in ROS Statement are negative. 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 PAIN IN UPPER BACK ALSO. OCC NT IN ARMS/HANDS. RECENT INJURY RT FOOT, POSS TORN TENDON. History of Any Multi-Drug Resistant Organisms: None Reported Past Surgical History: Orthopedic Surgery Additional Past Surgical History / Comment(s): RT 3RD FINGER Surgery. Past Anesthesia/Blood Transfusion Reactions: No Reported Reaction Past Psychological History: No Psychological Hx Reported, Anxiety, Depression Smoking Status: Former smoker Past Alcohol Use History: Occasional Past Drug Use History: None Reported - Past Family History Mother Family Medical History: No Reported History General Exam - General Exam Comments Initial Comments: GENERAL: Patient is well-developed and well-nourished. Patient is nontoxic and well- hydrated and is in moderate distress. ENT: Neck is soft and supple. Neck has full range of motion without eliciting any pain. EYES: The sclera were anicteric and conjunctiva were pink and moist. Extraocular movements were intact and pupils were equal round and reactive to light. Eyelids were unremarkable. PULMONARY: Unlabored respirations. Good breath sounds bilaterally. No audible rales rhonchi or wheezing was noted. CARDIOVASCULAR: There is a regular rate and rhythm without any murmurs gallops or rubs ABDOMEN: Soft and nontender with normal bowel sounds. No palpable organomegaly was noted. There is no palpable pulsatile mass. SKIN: Skin is clear with no lesions or rashes and otherwise unremarkable. NEUROLOGIC: Patient is alert and oriented x3. Cranial nerves II through XII are grossly intact. Motor and sensory are also intact. Normal speech, volume and content. Symmetrical smile. Straight leg test is negative bilaterally. Perineum exam is normal. MUSCULOSKELETAL: Normal extremities with adequate strength and full range of motion with passive movement. LYMPHATICS: No significant lymphadenopathy is noted PSYCHIATRIC: Normal psychiatric evaluation. Limitations: no limitations Course Vital Signs 03/31/19 13:53 Temperature 97.8 F Pulse Rate 83 Respiratory 18 Rate Blood Pressure 120/71 O2 Sat by Pulse 99 Oximetry Medical Decision Making - Medical Decision Making Patient account number refused the Toradol. I went back in and talked to the patient he agreed to take the portable when the nurse went back and he again refused I went back in another time to talk to him about taking some Toradol and he had already asked the nurse for some narcotics and he asked me for narcotics I told him we'll not give narcotics unless he tries to Toradol and he absolutely refused this at which point time he said he wanted to leave. I told the patient he would be leaving AGAINST MEDICAL ADVICE and he did not care he wanted to leave because were not doing anything for his pain. 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 Disposition Clinical Impression: Strain of lumbar region Disposition: Left Against Medical Advice Referrals: Pawan Quintana Jr, [Primary Care Provider] - 1-2 days Time of Disposition: 16:18
[2019-03-31] MEDS ORDERED: KETOROLAC 30 MG/ML 1 ML VIAL IVP STA (15:53)
== END 2019-03-31 16:24 | disposition left against medical advice (07) ==
LOC: EC 13:48
DX: S39.012A Strain of muscle, fascia and tendon of lower back, initial encounter (principal); Z91.041 Radiographic dye allergy status; Z87.891 Personal history of nicotine dependence; Z98.890 Other specified postprocedural states; X58.XXXA Exposure to other specified factors, initial encounter; Y93.72 Activity, wrestling
CPT/HCPCS: 99283; J3360

== ENCOUNTER 2020-03-14 12:57 | Observation (INO) | payer OTHER ==
[2020-03-14 13:09] LABS: Glucose,Whole Blood 106 mg/dL (75-99)
[2020-03-14] MEDS ORDERED: SODIUM CHLORIDE 0.9% 1,000 ML IV STA (13:39)
--- NOTE | 2020-03-14 13:41 | ED ---
General Adult HPI - General Chief complaint: Recheck/Abnormal Lab/Rx Stated complaint: shaky/poss low sugar Time Seen by Provider: 03/14/20 13:13 Source: patient Mode of arrival: wheelchair Limitations: no limitations - History of Present Illness Initial comments: Patient is a 39-year-old male presenting to the emergency Department with complaints of not feeling well for the past hour. Patient states she has been dealing with low blood sugar and is on appointment the end of this week for this issue. Patient states he felt well and normal this morning but then about an hour and half prior to arrival he started feeling shaky, felt like his heart r ate was elevating, his feeling nauseous. He thought his blood sugar was low so he ate some top goes however he did not feel improvement so he drove himself to the ER. Patient denies any chest pain, shortness of breath, abdominal pain, vomiting or diarrhea. He denies any heart disease. He states he takes no medications. He states he was drinking this weekend, a few drinks yesterday. Does admit to marijuana use, no other drug use. He denies any urinary difficulty. He has no further complaints at this time. Upon arrival to the ER, his vital signs are stable. - Related Data Home Medications Medication Instructions Recorded Confirmed No Known Home Medications 10/13/18 03/14/20 Allergies Allergy/AdvReac Type Severity Reaction Status Date / Time Iodinated Contrast Media AdvReac Nausea & Verified 03/14/20 14:15 [Iodinated Contrast- Oral Vomiting and IV Dye] Review of Systems ROS Statement: Those systems with pertinent positive or pertinent negative responses have been documented in the HPI. ROS Other: All systems not noted in ROS Statement are negative. 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 PAIN IN UPPER BACK ALSO. OCC NT IN ARMS/HANDS. RECENT INJURY RT FOOT, POSS TORN TENDON. History of Any Multi-Drug Resistant Organisms: None Reported Past Surgical History: Orthopedic Surgery Additional Past Surgical History / Comment(s): RT 3RD FINGER Surgery. Past Anesthesia/Blood Transfusion Reactions: No Reported Reaction Past Psychological History: Anxiety, Depression Smoking Status: Light tobacco smoker Past Alcohol Use History: Occasional Past Drug Use History: Marijuana - Past Family History Mother Family Medical History: No Reported History General Exam - General Exam Comments Initial Comments: GENERAL: Patient is well-developed and well-nourished. Patient is nontoxic and in no acute distress, is very anxious, slightly diaphoretic. HEAD: Atraumatic, normocephalic. EYES: Pupils equal round and reactive to light, extraocular movements intact, sclera anicteric, conjunctiva are normal. Eyelids were unremarkable. ENT: TMs normal, nares patent, oropharynx clear without exudates. Moist mucous membranes. NECK: Normal range of motion, supple without lymphadenopathy or JVD. LUNGS: Unlabored respirations. Breath sounds clear to auscultation bilaterally and equal. No wheezes rales or rhonchi. HEART: Tachycardia rate and rhythm without murmurs, rubs or gallops. ABDOMEN: Soft, nontender, normoactive bowel sounds. No guarding, no rebound. No masses appreciated. : Deferred MUSCULOSKELETAL: Normal extremities with adequate strength and normal range of motion, no pitting or edema. No clubbing or cyanosis. NEUROLOGICAL: Patient is alert and oriented x 3. Motor and sensory are also intact. Cranial nerves II through XII grossly intact. Symmetrical smile. Normal speech, normal gait. PSYCH: Normal mood, normal affect. SKIN: Warm, Dry, normal turgor, no rashes or lesions noted. Limitations: no limitations Course Vital Signs 03/14/20 13:04 Temperature 97.7 F Pulse Rate 103 H Respiratory 18 Rate Blood Pressure 128/97 O2 Sat by Pulse 98 Oximetry EKG Findings - EKG Comments: EKG Findings:: Unusual P axis, short IN, junctional tachycardia, nonspecific ST and T-wave abnormalities, there are T wave inversions inferior leads. Ventricular rate 106, IN interval 126, QT 346. Medical Decision Making - Medical Decision Making Patient is a 39-year-old male presenting with palpitations, feeling jittery, ill. He believes his blood sugar was low however it was not. He was slightly tachycardia on arrival, rest of vitals were normal. He denies any chest pain or shortness of breath. His exam showed no acute findings, no neuro deficits. His EKG does have some T-wave inversions in inferior leads, tachycardia. Labs show normal white count, troponin is normal. Urine shows no evidence of infection, it was positive for cocaine and marijuana. His alcohol was 21. Patient did admit to marijuana and having some drinks yesterday but states he was unaware of the cocaine. I do give patient some fluids, Ativan. He reports some mild improvement in symptoms. Given patient's complaint and EKG changes I did re commend admission for cardiac consult, serial troponins. Patient was accepted by Dr. Kyle. Patient is agreement with this plan of care. Case discussed with Dr. Vyas. - Lab Data Result diagrams: 03/14/20 13:57 03/14/20 13:57 Lab Results 03/14/20 03/14/20 03/14/20 Range/Units 13:07 13:57 13:57 WBC 7.1 (3.8-10.6) k/uL RBC 5.03 (4.30-5.90) m/uL Hgb 16.4 (13.0-17.5) gm/dL Hct 47.8 (39.0-53.0) % MCV 95.1 (80.0-100.0) fL MCH 32.6 (25.0-35.0) pg MCHC 34.3 (31.0-37.0) g/dL RDW 11.8 (11.5-15.5) % Plt Count 396 (150-450) k/uL Neutrophils % 56 % Lymphocytes % 31 % Monocytes % 7 % Eosinophils % 2 % Basophils % 2 % Neutrophils # 3.9 (1.3-7.7) k/uL Lymphocytes # 2.2 (1.0-4.8) k/uL Monocytes # 0.5 (0-1.0) k/uL Eosinophils # 0.1 (0-0.7) k/uL Basophils # 0.1 (0-0.2) k/uL Sodium 138 (137-145) mmol/L Potassium 3.9 (3.5-5.1) mmol/L Chloride 105 (98-107) mmol/L Carbon Dioxide 22 (22-30) mmol/L Anion Gap 11 mmol/L BUN 11 (9-20) mg/dL Creatinine 0.88 (0.66-1.25) mg/dL Est GFR (CKD-EPI)AfAm >90 (>60 ml/min/1.73 sqM) Est GFR (CKD-EPI)NonAf >90 (>60 ml/min/1.73 sqM) Glucose 93 (74-99) mg/dL POC Glucose (mg/dL) 106 H (75-99) mg/dL POC Glu [employer] ID Jasmyn Dalton Calcium 9.8 (8.4-10.2) mg/dL Total Bilirubin 0.9 (0.2-1.3) mg/dL AST 61 H (17-59) U/L ALT 40 (4-49) U/L Alkaline Phosphatase 90 (38-126) U/L Troponin I (0.000-0.034) ng/mL Total Protein 8.0 (6.3-8.2) g/dL Albumin 4.6 (3.5-5.0) g/dL Urine Color Urine Appearance (Clear) Urine pH (5.0-8.0) Ur Specific [place] (1.001-1.035) Urine Protein (Negative) Urine Glucose (UA) (Negative) Urine Ketones (Negative) Urine Blood (Negative) Urine Nitrite (Negative) Urine Bilirubin (Negative) Urine Urobilinogen (<2.0) mg/dL Ur Leukocyte Esterase (Negative) Urine Opiates Screen (NotDetected) Ur Oxycodone Screen (NotDetected) Urine Methadone Screen (NotDetected) Ur Propoxyphene Screen (NotDetected) Ur Barbiturates Screen (NotDetected) U Tricyclic Antidepress (NotDetected) Ur Phencyclidine Scrn (NotDetected) Ur Amphetamines Screen (NotDetected) U Methamphetamines Scrn (NotDetected) U Benzodiazepines Scrn (NotDetected) Urine Cocaine Screen (NotDetected) U Marijuana (THC) Screen (NotDetected) Serum Alcohol 21 mg/dL 03/14/20 03/14/20 Range/Units 13:57 13:59 WBC (3.8-10.6) k/uL RBC (4.30-5.90) m/uL Hgb (13.0-17.5) gm/dL Hct (39.0-53.0) % MCV (80.0-100.0) fL MCH (25.0-35.0) pg MCHC (31.0-37.0) g/dL RDW (11.5-15.5) % Plt Count (150-450) k/uL Neutrophils % % Lymphocytes % % Monocytes % % Eosinophils % % Basophils % % Neutrophils # (1.3-7.7) k/uL Lymphocytes # (1.0-4.8) k/uL Monocytes # (0-1.0) k/uL Eosinophils # (0-0.7) k/uL Basophils # (0-0.2) k/uL Sodium (137-145) mmol/L Potassium (3.5-5.1) mmol/L Chloride (98-107) mmol/L Carbon Dioxide (22-30) mmol/L Anion Gap mmol/L BUN (9-20) mg/dL Creatinine (0.66-1.25) mg/dL Est GFR (CKD-EPI)AfAm (>60 ml/min/1.73 sqM) Est GFR (CKD-EPI)NonAf (>60 ml/min/1.73 sqM) Glucose (74-99) mg/dL POC Glucose (mg/dL) (75-99) mg/dL POC Glu Furniture [employer]per ID Calcium (8.4-10.2) mg/dL Total Bilirubin (0.2-1.3) mg/dL AST (17-59) U/L ALT (4-49) U/L Alkaline Phosphatase (38-126) U/L Troponin I <0.012 (0.000-0.034) ng/mL Total Protein (6.3-8.2) g/dL Albumin (3.5-5.0) g/dL Urine Color Yellow Urine Appearance Clear (Clear) Urine pH 7.5 (5.0-8.0) Ur Specific [place] 1.013 (1.001-1.035) Urine Protein Negative (Negative) Urine Glucose (UA) Negative (Negative) Urine Ketones Negative (Negative) Urine Blood Negative (Negative) Urine Nitrite Negative (Negative) Urine Bilirubin Negative (Negative) Urine Urobilinogen <2.0 (<2.0) mg/dL Ur Leukocyte Esterase Negative (Negative) Urine Opiates Screen Not Detected (NotDetected) Ur Oxycodone Screen Not Detected (NotDetected) Urine Methadone Screen Not Detected (NotDetected) Ur Propoxyphene Screen Not Detected (NotDetected) Ur Barbiturates Screen Not Detected (NotDetected) U Tricyclic Antidepress Not Detected (NotDetected) Ur Phencyclidine Scrn Not Detected (NotDetected) Ur Amphetamines Screen Not Detected (NotDetected) U Methamphetamines Scrn Not Detected (NotDetected) U Benzodiazepines Scrn Not Detected (NotDetected) Urine Cocaine Screen Detected H (NotDetected) U Marijuana (THC) Screen Detected H (NotDetected) Serum Alcohol mg/dL Disposition Clinical Impression: Palpitations, T wave inversion in EKG Disposition: ADMITTED IP TO THIS [facility] Condition: Stable Is patient prescribed a controlled substance at d/c from ED?: No Referrals: Pawan Quintana Jr, DO [Primary Care Provider] - 1-2 days Decision Date: 03/14/20 Decision Time: 15:38
[2020-03-14] MEDS: ONDANSETRON 4 MG/2 ML VIAL IVP STA ×2 (14:00→14:01)
[2020-03-14 14:09] LABS: Basophils # (A) 0.1 k/uL (0-0.2); Basophils % (A) 2 %; Eosinophils # (A) 0.1 k/uL (0-0.7); Eosinophils % (A) 2 %; HCT 47.8 % (39.0-53.0); HGB 16.4 gm/dL (13.0-17.5); Lymphocytes # (A) 2.2 k/uL (1.0-4.8); Lymphocytes % (A) 31 %; MCH 32.6 pg (25.0-35.0); MCHC 34.3 g/dL (31.0-37.0); MCV 95.1 fL (80.0-100.0); Mean Platelet Volume 6.2; Monocytes # (A) 0.5 k/uL (0-1.0); Monocytes % (A) 7 %; Neutrophils # (A) 3.9 k/uL (1.3-7.7); Neutrophils % (A) 56 %; Platelet Count 396 k/uL (150-450); RBC 5.03 m/uL (4.30-5.90); RDW 11.8 % (11.5-15.5); WBC 7.1 k/uL (3.8-10.6)
[2020-03-14] MEDS ORDERED: ASPIRIN 81 MG PO STA (14:20)
[2020-03-14] MEDS ORDERED: LORazepam 1 MG TAB PO STA (14:21)
[2020-03-14 14:28] LABS: Appearance,Urine Clear (Clear); Bilirubin,Urine Negative (Negative); Blood,Urine Negative (Negative); Color,Urine Yellow; Glucose,Urine (UA) Negative (Negative); Ketones,Urine Negative (Negative); Leukocyte Esterase,Urine Negative (Negative); Nitrite,Urine Negative (Negative); PH, Urine 7.5 (5.0-8.0); Protein,Urine Negative (Negative); Specific Gravity,Urine 1.013 (1.001-1.035); Urobilinogen,Urine <2.0 mg/dL (<2.0)
--- NOTE | 2020-03-14 14:36 | XR ---
EXAMINATION TYPE: XR chest 2V DATE OF EXAM: 03/14/2020 COMPARISON: Chest x-ray 10/13/2018 HISTORY: Palpitations TECHNIQUE: Frontal and lateral views of the chest are obtained on 3 images. FINDINGS: There is no focal air space opacity, pleural effusion, or pneumothorax seen. The cardiac silhouette size is within normal limits. The osseous structures are intact. IMPRESSION: No acute cardiopulmonary process.
[2020-03-14 14:38] LABS: ALT 40 U/L (4-49); AST 61 U/L (17-59); African American GFR (CKD) >90 (>60 ml/min/1.73 sqM); Albumin 4.6 g/dL (3.5-5.0); Alcohol 21 mg/dL; Alkaline Phosphatase 90 U/L (38-126); Anion Gap 11 mmol/L; Blood Urea Nitrogen 11 mg/dL (9-20); Calcium 9.8 mg/dL (8.4-10.2); Carbon Dioxide 22 mmol/L (22-30); Chloride 105 mmol/L (98-107); Glucose 93 mg/dL (74-99); Non-African American GFR(CKD) >90 (>60 ml/min/1.73 sqM); Potassium 3.9 mmol/L (3.5-5.1); Sodium 138 mmol/L (137-145); Total Bilirubin 0.9 mg/dL (0.2-1.3)
[2020-03-14 14:38] LABS: Amphetamine Screen,Urine Not Detected (NotDetected); Barbiturate Screen,Urine Not Detected (NotDetected); Benzodiazepines Screen,Urine Not Detected (NotDetected); Cocaine Screen,Urine Detected (NotDetected); Methadone Screen, Urine Not Detected (NotDetected); Opiate Screen,Urine Not Detected (NotDetected); Oxycodone Screen, Urine Not Detected (NotDetected); Phencyclidine Screen,Urine Not Detected (NotDetected); Tricyclic Antidepressant,Urine Not Detected (NotDetected); Urn Cannabinoid Scrn Detected (NotDetected)
[2020-03-14] MEDS ORDERED: NITROGLYCERIN SL TABS 0.4 MG TAB SUBLINGUAL PRN (15:34)
[2020-03-14] MEDS: ALPRAZolam 0.25 MG TAB PO PRN ×2 (16:49→22:55)
[2020-03-14] MEDS ORDERED: ONDANSETRON 4 MG/2 ML VIAL IVP PRN (17:08)
[2020-03-14] MEDS ORDERED: ACETAMINOPHEN TAB 325 MG TAB PO PRN (18:05)
[2020-03-14] MEDS ORDERED: MELATONIN 5 MG TABLET PO PRN (19:02)
[2020-03-15 06:17] LABS: Cholesterol 203 mg/dL (<200); HDL Cholesterol 104 mg/dL (40-60); LDL Cholesterol,Calculated 81 mg/dL (0-99); Triglycerides 92 mg/dL (<150)
[2020-03-15] MEDS ORDERED: KETOROLAC 15 MG/ML 1 ML VIAL IVP STA (08:09)
[2020-03-15] MEDS: ALPRAZolam 0.25 MG TAB PO PRN ×2 (08:14→13:00)
[2020-03-15] MEDS ORDERED: ASPIRIN 81 MG PO SCH (09:00)
[2020-03-15] MEDS ORDERED: ASPIRIN 325 MG TAB PO SCH (09:00)
--- NOTE | 2020-03-15 09:51 | P.CRDCN ---
History of Present Illness Consult date: 03/15/20 History of present illness: CHIEF COMPLAINT: Palpitations HISTORY OF PRESENT ILLNESS: This is a 39 -year old male with a past medical history significant for alcohol use and marijuana use. Patient does not follow with a trichologist. We have been asked to see the patient in consultation for palpitations. 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 Patient thought his blood sugar was low and ate some food but states his symp toms did not go away. He reports feeling some shortness of breath as well so he decided to come to the emergency room for evaluation. Patient reports bilateral chest discomfort this morning. Pain is worse with deep inspiration. Patient also reports pain with palpation of chest wall. Patient states he went to a [employer] over the weekend and reports marijuana use and alcohol use. His toxicology screen was positive for cocaine, but patient denies using cocaine. DIAGNOSTICS: EKG reveals atrial arrhythmia. Repeat EKG completed this morning reveals sinus rhythm which then converts to junctional bradycardia. Chest xray negative for acute process Laboratory data: WBC 7.1. Hemoglobin 16.4. Platelet count 396. Sodium 138. Potassium 3.9. BUN 11. Creatinine 0.88. Troponin negative 3. Toxicology screen positive for cocaine and marijuana. Serum alcohol 21. Current home cardiac medications include: None REVIEW OF SYSTEMS: At the time of my exam: CONSTITUTIONAL: Denies fever or chills. HEENT: Denies blurred vision, vision changes, or eye pain. Denies hemoptysis CARDIOVASCULAR: Reports chest discomfort. Denies orthopnea, PND or palpitations RESPIRATORY: No shortness of breath. GASTROINTESTINAL: Denies abdominal pain. Denies nausea or vomiting. HEMATOLOGIC: Denies bleeding disorders. GENITOURINARY: Denies any blood in urine. SKIN: Denies pruitis. Denies rash. PHYSICAL EXAM: VITAL SIGNS: Reviewed. GENERAL: Well-developed in no acute distress. HEENT: Head is normocephalic. Pupils are equal, round. Sclerae anicteric. Mucous membranes of the mouth are moist. Neck supple. No JVD or thyromegaly LUNGS: Respirations even and unlabored. Lungs essentially clear to auscultation bilaterally. HEART: Regular rate and rhythm. S1 and S2 heard. Tenderness with chest wall palpation. ABDOMEN: Soft. Nondistended. Nontender. EXTREMITIES: Normal range of motion. No clubbing or cyanosis. Peripheral pulses intact. No lower extremity edema NEUROLOGIC: Awake and alert. Oriented x 3. ASSESSMENT: Chest pain, atypical, reproducible, troponins negative 3 Palpitations Abnormal EKG Nicotine dependence Marijuana use Daily alcohol use Positive cocaine per toxicology, patient denies cocaine use PLAN: Acute coronary event has been ruled out. EKG abnormalities may be secondary to drug use. Toradol 30 mg 1 dose for reproducible chest pain Obtain 2-D echo to assess cardiac structure and function Recommend smoking cessation Recommend abstinence from alcohol and drug use If 2-D echo does not reveal any significant abnormalities, patient may be discharged home today from a cardiac standpoint. He may follow up for outpatient stress test. Nurse practitioner note has been reviewed by physician. Signing provider agrees with the documented findings, assessment, and plan of care. 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 PAIN IN UPPER BACK ALSO. OCC NUMBNESS IN ALL EXTERMITIES. LEFT FOOT INJURY- PER PT HE HAS A MASS INBETWEEN HIS TOES. History of Any Multi-Drug Resistant Organisms: None Reported Past Surgical History: Orthopedic Surgery Additional Past Surgical History / Comment(s): RT 3RD FINGER Surgery. Past Anesthesia/Blood Transfusion Reactions: No Reported Reaction Past Psychological History: Anxiety Additional Psychological History / Comment(s): NO CURRENT PROBLEMS Smoking Status: Light tobacco smoker Past Alcohol Use History: Occasional Additional Past Alcohol Use History / Comment(s): SMOKED ELECTRONIC CIGARETTES IN PAST, QUIT 2007; NOW SMOKING CIGARETTES, 1/2 PPD. CURRENTLY 12 OR LESS BEER WEEKLY-DOWN FROM 15 BEER DAILY. Past Drug Use History: Marijuana Additional Drug Use History / Comment(s): QUIT 07/2017 - Past Family History Mother Family Medical History: No Reported History Medications and Allergies Home Medications Medication Instructions Recorded Confirmed Type No Known Home Medications 10/13/18 03/14/20 History Allergies Allergy/AdvReac Type Severity Reaction Status Date / Time Iodinated Contrast Media AdvReac Nausea & Verified 03/14/20 14:15 [Iodinated Contrast- Oral Vomiting and IV Dye] Physical Exam Vitals: Vital Signs Temp Pulse Pulse Resp BP BP Pulse Ox 03/15/20 08:05 97.9 F 65 16 115/73 95 03/15/20 04:33 97.4 F L 68 18 116/71 99 03/14/20 19:35 98.3 F 78 18 119/75 96 03/14/20 16:53 81 18 03/14/20 16:25 98.6 F 81 18 120/84 99 03/14/20 16:00 74 18 121/88 97 03/14/20 15:30 80 16 129/82 100 03/14/20 15:00 81 18 94 L 03/14/20 14:30 131/78 03/14/20 14:02 94 18 100 03/14/20 13:04 97.7 F 103 H 18 128/97 98 Intake and Output 03/14/20 03/15/20 03/15/20 22:59 06:59 14:59 Intake Total 300 Balance 300 Intake: Oral 300 Other: Voiding Method Toilet Toilet # Voids 2 1 Weight 72.575 kg Results 03/14/20 13:57 03/14/20 13:57 Cardiac Enzymes 03/14/20 03/14/20 03/14/20 Range/Units 13:57 13:57 16:53 AST 61 H (17-59) U/L Troponin I <0.012 <0.012 (0.000-0.034) ng/mL 03/14/20 Range/Units 20:11 AST (17-59) U/L Troponin I <0.012 (0.000-0.034) ng/mL Lipids 03/15/20 Range/Units 05:55 Triglycerides 92 (<150) mg/dL Cholesterol 203 H (<200) mg/dL HDL Cholesterol 104 H (40-60) mg/dL CBC 03/14/20 Range/Units 13:57 WBC 7.1 (3.8-10.6) k/uL RBC 5.03 (4.30-5.90) m/uL Hgb 16.4 (13.0-17.5) gm/dL Hct 47.8 (39.0-53.0) % Plt Count 396 (150-450) k/uL Comprehensive Metabolic Panel 03/14/20 Range/Units 13:57 Sodium 138 (137-145) mmol/L Potassium 3.9 (3.5-5.1) mmol/L Chloride 105 (98-107) mmol/L Carbon Dioxide 22 (22-30) mmol/L BUN 11 (9-20) mg/dL Creatinine 0.88 (0.66-1.25) mg/dL Glucose 93 (74-99) mg/dL Calcium 9.8 (8.4-10.2) mg/dL AST 61 H (17-59) U/L ALT 40 (4-49) U/L Alkaline Phosphatase 90 (38-126) U/L Total Protein 8.0 (6.3-8.2) g/dL Albumin 4.6 (3.5-5.0) g/dL Current Medications Generic Name Dose Route Start Last Admin Trade Name Freq PRN Reason Stop Dose Admin Acetaminophen 650 mg 03/14/20 18:05 Acetaminophen Tab 325 Mg Tab PO Q6HR PRN Fever and/ or Pain Alprazolam 0.25 mg 03/14/20 15:34 03/15/20 08:14 Alprazolam 0.25 Mg Tab PO 0.25 mg QID PRN Administration Anxiety Aspirin 81 mg 03/15/20 09:00 Aspirin 81 Mg PO DAILY ELVER Melatonin 5 mg 03/14/20 19:02 Melatonin 5 Mg Tablet PO HS PRN Insomnia Nitroglycerin 0.4 mg 03/14/20 15:34 Nitroglycerin Sl Tabs 0.4 Mg Tab SUBLINGUAL Q5M PRN Chest Pain Ondansetron HCl 4 mg 03/14/20 17:08 03/14/20 17:23 Ondansetron 4 Mg/2 Ml Vial IVP 4 mg Q6HR PRN Administration Nausea And Vomiting Intake and Output 03/14/20 03/15/20 03/15/20 22:59 06:59 14:59 Intake Total 300 Balance 300 Intake: Oral 300 Other: Voiding Method Toilet Toilet # Voids 2 1 Weight 72.575 kg 03/14/20 13:57 03/14/20 13:57
[2020-03-15] MEDS ORDERED: REGADENOSON 0.4 MG/5 ML SYRINGE IV ONE (10:02)
[2020-03-15] MEDS ORDERED: CAFFEINE CITRATE 60 MG/3 ML VIAL IV PRN (10:02)
[2020-03-15] MEDS ORDERED: AMINOPHYLLINE 500 MG/20 ML VIAL IV PRN (10:02)
[2020-03-15] MEDS: carvediloL 3.125 MG TAB PO SCH ×2 (10:49→17:55)
--- NOTE | 2020-03-15 11:00 | ECHOF ---
Referral Reason:LV function MEASUREMENTS -------- HEIGHT: 182.9 cm WEIGHT: 72.6 kg BP: RVIDd: 2.2 cm (< 3.3) IVSd: 0.9 cm (0.6 - 1.1) LVIDd: 5.2 cm (3.9 - 5.3) LVPWd: 0.9 cm (0.6 - 1.1) IVSs: 1.4 cm LVIDs: 3.3 cm LVPWs: 1.7 cm Ao Diam: 3.2 cm (2.0 - 3.7) AV Cusp: 1.5 cm (1.5 - 2.6) LA Diam: 2.3 cm (2.7 - 3.8) MV EXCURSION: 22.473 mm (> 18.000) MV EF SLOPE: 193 mm/s (70 - 150) EPSS: 0.7 cm MV E Edgardo: 0.68 m/s MV DecT: 388 ms MV A Edgardo: 0.38 m/s MV E/A Ratio: 1.77 RAP: 5.00 mmHg RVSP: 26.52 mmHg FINDINGS -------- This was a technically good study. The left ventricular size is normal. Left ventricular wall thickness is normal. Overall left vent ricular systolic function is mild-moderately impaired with, an EF between 40 - 45 %. The right ventricle is normal in size. The left atrial size is normal. Normal LA size by volume 22+/-6 ml/m2. The right atrial size is normal. The aortic valve is trileaflet and appears structurally normal. The mitral valve is normal. The mitral valve leaflets are mildly thickened. Mild mitral annular c alcification present. There is trace mitral regurgitation. The tricuspid valve appears structurally normal. Trace tricuspid regurgitation present. Right kenia tricular systolic pressure is normal at < 35 mmHg. There is no pulmonic regurgitation present. The aortic root size is normal. Normal inferior vena cava with normal inspiratory collapse consistent with estimated right atrial pre ssure of 5 mmHg. There is no pericardial effusion. CONCLUSIONS -------- 1. The left ventricular size is normal. 2. Left ventricular wall thickness is normal. 3. Overall left ventricular systolic function is mild-moderately impaired with, an EF between 40 - 45 %. 4. The mitral valve leaflets are mildly thickened. 5. Mild mitral annular calcification present. 6. There is trace mitral regurgitation. 7. Trace tricuspid regurgitation present. 8. There is no pericardial effusion. RN IV THERAPY: Bernie Scott RDCS
--- NOTE | 2020-03-15 14:03 | P.HPIM ---
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 Reports significant anxiety, resulting in daily alcohol consumption. Chest x-ray reported no acute cardiopulmonary process. Chest pain reproducible. Denies cocaine use; Marijuana and cocaine detected. Serum alcohol 21. Troponin is negative 3. Triglycerides 92, cholesterol 203, LDL 81, HDL 104. EKG reporting junctional tachycardia, nonspecific ST/T-wave abnormality, Echocardiogram reporting EF 40-45%. Vital signs stable. Hematology and chemistry unremarkable, glucose 106. UA negative. Review of Systems ROS Statement: Those systems with pertinent positive or pertinent negative responses have been documented in the HPI. ROS Other: All systems not noted in ROS Statement are negative. 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 PAIN IN UPPER BACK ALSO. OCC NUMBNESS IN ALL EXTERMITIES. LEFT FOOT INJURY- PER PT HE HAS A MASS INBETWEEN HIS TOES. History of Any Multi-Drug Resistant Organisms: None Reported Past Surgical History: Orthopedic Surgery Additional Past Surgical History / Comment(s): RT 3RD FINGER Surgery. Past Anesthesia/Blood Transfusion Reactions: No Reported Reaction Past Psychological History: Anxiety Additional Psychological History / Comment(s): NO CURRENT PROBLEMS Smoking Status: Light tobacco smoker Past Alcohol Use History: Occasional Additional Past Alcohol Use History / Comment(s): SMOKED ELECTRONIC CIGARETTES IN PAST, QUIT 2007; NOW SMOKING CIGARETTES, 1/2 PPD. CURRENTLY 12 OR LESS BEER WEEKLY-DOWN FROM 15 BEER DAILY. Past Drug Use History: Marijuana Additional Drug Use History / Comment(s): QUIT 07/2017 - Past Family History Mother Family Medical History: No Reported History Medications and Allergies Home Medications Medication Instructions Recorded Confirmed Type No Known Home Medications 10/13/18 03/14/20 History Allergies Allergy/AdvReac Type Severity Reaction Status Date / Time Iodinated Contrast Media AdvReac Nausea & Verified 03/14/20 14:15 [Iodinated Contrast- Oral Vomiting and IV Dye] Physical Exam Vitals: Vital Signs Temp Pulse Pulse Resp BP BP Pulse Ox 03/15/20 08:05 97.9 F 65 16 115/73 95 03/15/20 04:33 97.4 F L 68 18 116/71 99 03/14/20 19:35 98.3 F 78 18 119/75 96 03/14/20 16:53 81 18 03/14/20 16:25 98.6 F 81 18 120/84 99 03/14/20 16:00 74 18 121/88 97 03/14/20 15:30 80 16 129/82 100 03/14/20 15:00 81 18 94 L 03/14/20 14:30 131/78 03/14/20 14:02 94 18 100 03/14/20 13:04 97.7 F 103 H 18 128/97 98 Intake and Output 03/14/20 03/15/20 03/15/20 22:59 06:59 14:59 Intake Total 300 Balance 300 Intake: Oral 300 Other: Voiding Method Toilet Toilet # Voids 2 Weight 72.575 kg PHYSICAL EXAM: VITAL SIGNS: As above GENERAL: Sitting up in bed, no acute distress HEENT: Conjunctivae normal. eyes normal. NECK: No JVD. No thyroid enlargement. No LNs CARDIOVASCULAR: S1, S2 regular.. No murmur RESPIRATION: Breath sounds diminished in the bases. No rhonchi or crackles. No bronchial breathing. ABDOMEN: Soft, nontender . No guarding. no masses.palpable. No ascites, No hepatosplenomegaly.Bowel sounds heard. LEGS: No edema. no swelling PSYCHIATRY: Alert and oriented X3, mood and affect normal. NERVOUS SYSTEM: Cranial N 2-12 grossly normal. Moves all 4 limbs. No focal deficits. Strength and sensation grossly intact.. Skin: Warm and dry, no rash Lymphatic system. No LN neck axilla. Results CBC & Chem 7: 03/14/20 13:57 03/14/20 13:57 Labs: Abnormal Lab Results - Last 24 Hours (Table) 03/14/20 03/14/20 03/14/20 Range/Units 13:07 13:57 13:59 POC Glucose (mg/dL) 106 H (75-99) mg/dL AST 61 H (17-59) U/L Cholesterol (<200) mg/dL HDL Cholesterol (40-60) mg/dL Urine Cocaine Screen Detected H (NotDetected) U Marijuana (THC) Screen Detected H (NotDetected) 03/15/20 Range/Units 05:55 POC Glucose (mg/dL) (75-99) mg/dL AST (17-59) U/L Cholesterol 203 H (<200) mg/dL HDL Cholesterol 104 H (40-60) mg/dL Urine Cocaine Screen (NotDetected) U Marijuana (THC) Screen (NotDetected) Thrombosis Risk Factor Assmnt - Choose All That Apply Any of the Below Risk Factors Present?: No Other Risk Factors: No Other congenital or acquired thrombophilia - If yes, enter type in comment: No Thrombosis Risk Factor Assessment Level: Very Low Risk Assessment and Plan Assessment: Acute chest pain, reproducible with abnormal EKG, troponins negative 3 EF 40-45% Positive cocaine detected on toxicology screen Nicotine dependence Alcohol abuse Anxiety Hypercholesterolemia Plan: Continue current medication regime ,monitoring and symptomatic treatment. Evaluated by cardiology, Lexiscan stress test scheduled for tomorrow. Alcohol abstinence and smoking cessation reinforced. Lexapro initiated for patient's complaints of significant anxiety leading to patient's daily drinking. Discharge planning in progress for tomorrow pending stress test, cardiology clearance. The impression and plan of care has been dictated as directed. : I performed a history and examination of this patient, discussed the same with the dictator. I agree with the dictator's note ,documented as a scribe. Any additional findings or plans will be noted.
[2020-03-15] MEDS: ESCITALOPRAM 10 MG TAB PO SCH (15:34)
[2020-03-16] MEDS: carvediloL 3.125 MG TAB PO SCH (06:38)
[2020-03-16 08:00] VITALS: BP 114/72; PULSE 60; RESP 16; TEMP 97.8
[2020-03-16] MEDS: ESCITALOPRAM 10 MG TAB PO SCH (10:17)
--- NOTE | 2020-03-16 11:17 | P.STRESS ---
- Stress Test Note Stress Test Results/Findings: Exam Performed: NM stress lexiscan cardiolite Exam Date: 03/16/20 Reason for Exam: CHEST PAIN Height: 6 ft 2 in Weight: 72.57 kg Protocol: LEXISCAN Stage: NA Duration of Exercise: NA Resting Heart Rate: 60 Resting Blood Pressure: 115/82 Maximum Achieved Heart Rate: 117 Maximum Achieved Blood Pressure: 122/87 85% PMHR: NA 100% PMHR: NA METS: NA Technologist Comment: Stress Test Results/Findings: This is a 39-year-old gentleman was admitted to the hospital with complaints of chest pain and palpitations. Patient has family history of ischemic heart disease, smoking and hypercholesterolemia. Troponins are negative. Stress data:. Baseline EKG showed sinus rhythm. Blood pressure at rest is 115/82 with pulse rate of 60. A standard dose of Lexiscan was infused. EKGs taken during and after the infusion did not reveal any changes of ischemia. Final impression #1. Negative Lexiscan stress test #2. Report on the nuclear images to be given by the radiologist.
--- NOTE | 2020-03-16 12:41 | NM ---
EXAMINATION TYPE: NM stress lexiscan cardiolite DATE OF EXAM: 03/16/2020 COMPARISON: Prior study June 09, 2015 HISTORY: History of tobacco use in the past along with family history of heart attack and hypercholes terolemia presents with chest pain and palpitations. TECHNIQUE: After the intravenous administration of 9.82 mCi Tc 99m Sestamibi - Cardiolite resting SP ECT images acquired 60 minutes post injection. The patient received 0.4mg Lexiscan, 25 mCi Tc 99m Sestamibi - Stress images obtained 45 minutes post injection FINDINGS: Review of stress and rest SPECT images demonstrates some poor uptake on rest and stress images favori ng artifact involving the inferior left ventricular wall. No reversible ischemia is seen. Gated june sis shows normal wall motion with an estimated left ventricular ejection fraction of 53 %. IMPRESSION: No scintigraphic evidence for reversible ischemia.
--- NOTE | 2020-03-16 14:01 | P.PN ---
Subjective Progress Note Date: 03/16/20 CHIEF COMPLAINT: Palpitations HISTORY OF PRESENT ILLNESS: Patient examined this morning in the stress lab. He denies chest pain or pressure. Denies shortness of breath. Vital signs stable. Echocardiogram revealed ejection fraction between 40 and 45%. Lexiscan stress test revealed no evidence for reversible ischemia and estimated ejection fraction of 53%. PHYSICAL EXAM: VITAL SIGNS: Reviewed. GENERAL: Well-developed in no acute distress. HEENT: Head is normocephalic. Pupils are equal, round. Sclerae anicteric. Mucous membranes of the mouth are moist. Neck supple. No JVD or thyromegaly LUNGS: Respirations even and unlabored. Lungs essentially clear to auscultation bilaterally. HEART: Regular rate and rhythm. S1 and S2 heard. ABDOMEN: Soft. Nondistended. Nontender. EXTREMITIES: Normal range of motion. No clubbing or cyanosis. Peripheral pulses intact. No lower extremity edema NEUROLOGIC: Awake and alert. Oriented x 3. ASSESSMENT: Chest pain, atypical, reproducible, troponins negative 3 Palpitations Abnormal EKG Nicotine dependence Marijuana use Daily alcohol use Positive cocaine per toxicology, patient denies cocaine use Nonischemic cardiomyopathy, EF 40-45% PLAN: Continue Coreg 3.125mg PO BID Patient may be discharged home from a cardiac standpoint. He is to follow up outpatient in 1 week. Nurse practitioner note has been reviewed by physician. Signing provider agrees with the documented findings, assessment, and plan of care. Objective - Vital Signs Vital signs: Vital Signs Temp 97.8 F 03/16/20 07:59 Pulse 60 03/16/20 07:59 Resp 16 03/16/20 09:00 BP 114/72 03/16/20 07:59 Pulse Ox 96 03/16/20 07:59 Intake & Output 03/15/20 03/16/20 03/16/20 18:59 06:59 18:59 Intake Total 500 200 Balance 500 200 Weight 72.57 kg Intake: Oral 500 200 Other: Voiding Method Toilet Toilet Toilet # Voids 1 2 - Labs CBC & Chem 7: 03/14/20 13:57 03/14/20 13:57
--- NOTE | 2020-03-16 14:32 | P.DS ---
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 Reports significant anxiety, resulting in daily alcohol consumption. Chest x-ray reported no acute cardiopulmonary process. Chest pain reproducible. Denies cocai ne use; Marijuana and cocaine detected. Serum alcohol 21. Troponin is negative 3. Triglycerides 92, cholesterol 203, LDL 81, HDL 104. EKG reporting junctional tachycardia, nonspecific ST/T-wave abnormality, Echocardiogram reporting EF 40-45%. Vital signs stable. Hematology and chemistry unremarkable, glucose 106. UA negative. Underwent Lexiscan stress test reporting negative Lexiscan test, no evidence for reversible ischemia, EF 53%. Tolerated procedure well. Patient will be discharged home today pending final DC recommendations and clearance from cardiology. The impression and plan of care has been dictated as directed. : I performed a history and examination of this patient, discussed the same with the dictator. I agree with the dictator's note ,documented as a scribe. Any additional findings or plans will be noted. Patient Condition at Discharge: Stable Plan - Discharge Summary Discharge Rx Participant: Yes New Discharge Prescriptions: New carvediloL [Coreg] 3.125 mg PO BID-W/MEALS #60 tab Escitalopram [Lexapro] 10 mg PO DAILY #30 tab Discharge Medication List Escitalopram [Lexapro] 10 mg PO DAILY #30 tab 03/16/20 [Rx] carvediloL [Coreg] 3.125 mg PO BID-W/MEALS #60 tab 03/16/20 [Rx] Follow up Appointment(s)/Referral(s): Leo Zapien MD [STAFF PHYSICIAN] - 03/23/20 9:30 am Pawan Quintana Jr, DO [Primary Care Provider] - 03/21/20 10:15 am Patient Instructions/Handouts: Chest Pain (DC), Heart Healthy Diet (DC) Activity/Diet/Wound Care/Special Instructions: Diet: low cholesterol
== END 2020-03-16 13:49 ==
LOC: EC 12:57 → 3NCARDOBS 15:51
PROVIDERS: ADMIT Family Medicine; ATTEND Family Medicine
DX: R07.89 Other chest pain (principal); R94.31 Abnormal electrocardiogram [ECG] [EKG]; R78.2 Finding of cocaine in blood; F17.210 Nicotine dependence, cigarettes, uncomplicated; F10.10 Alcohol abuse, uncomplicated; F41.9 Anxiety disorder, unspecified; E78.00 Pure hypercholesterolemia, unspecified; R00.2 Palpitations; R00.0 Tachycardia, unspecified; R20.2 Paresthesia of skin; R20.0 Anesthesia of skin; R06.02 Shortness of breath; R00.1 Bradycardia, unspecified; F12.90 Cannabis use, unspecified, uncomplicated; I42.8 Other cardiomyopathies; M50.20 Other cervical disc displacement, unspecified cervical region; F32.9 Major depressive disorder, single episode, unspecified; Z20.828 Contact with and (suspected) exposure to other viral communicable diseases; Z91.041 Radiographic dye allergy status; Z87.828 Personal history of other (healed) physical injury and trauma; Z98.890 Other specified postprocedural states; Y90.1 Blood alcohol level of 20-39 mg/100 ml
CPT/HCPCS: 93005 ×2; 96374; 96375; 96361; 99284; 36415; 93017; 93306; 80061; 80053; 84484; 85025; 81003; 80306; 71046; 78452; G0378 ×3; G0480; U0003; A9500; J2405; J2785; J1885; 80320

== ENCOUNTER → 2020-08-29 | Outpatient (CLI) | payer OTHER | END | disposition home or self-care (01) | LOC: LABWHC1 14:44 | PROVIDERS: ATTEND Family Medicine | DX: R07.9 Chest pain, unspecified (principal) | CPT/HCPCS: 36415; 93005 ==

== ENCOUNTER 2021-03-22 04:01 | Emergency (ER) | payer OTHER ==
[2021-03-22] MEDS ORDERED: ACETAMINOPHEN TAB 500 MG TAB PO STA (04:22)
[2021-03-22] MEDS ORDERED: IBUPROFEN 800 MG TAB PO STA (04:22)
--- NOTE | 2021-03-22 04:23 | ED ---
URI HPI - General Chief Complaint: Headache Stated Complaint: congestion Time Seen by Provider: 03/22/21 04:19 Source: patient, RN notes reviewed, old records reviewed Mode of arrival: ambulatory Limitations: no limitations - History of Present Illness Initial Comments: This is a 40-year-old male to the emergency. Patient Dese for evaluation regards to multiple complaints including diagnosis cough congestion bodyaches and pains. Low-grade fevers no significant swelling. Patient is here with contacts by workmate who has similar symptoms. Patient denies any exposure to coronavirus MD Complaint: fever, cough, sore throat -: hour(s) Severity: moderate Severity scale (1-10): 4 Quality: sharp Consistency: constant Improves With: nothing Worsens With: nothing Context: new medications Associated Symptoms: fever, chills, myalgias Treatments Prior to Arrival: none - Related Data Previous Rx's Medication Instructions Recorded Escitalopram [Lexapro] 10 mg PO DAILY #30 tab 03/16/20 carvediloL [Coreg] 3.125 mg PO BID-W/MEALS #60 tab 03/16/20 Azithromycin [Zithromax Z-pack (6 0 mg PO DIRECTED 5 Days #6 tab 03/22/21 tabs)] Allergies Allergy/AdvReac Type Severity Reaction Status Date / Time Iodinated Contrast Media AdvReac Nausea & Verified 03/22/21 04:10 [Iodinated Contrast- Oral Vomiting and IV Dye] Review of Systems ROS Statement: Those systems with pertinent positive or pertinent negative responses have been documented in the HPI. ROS Other: All systems not noted in ROS Statement are negative. 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 PAIN IN UPPER BACK ALSO. OCC NUMBNESS IN ALL EXTERMITIES. LEFT FOOT INJURY- PER PT HE HAS A MASS INBETWEEN HIS TOES. History of Any Multi-Drug Resistant Organisms: None Reported Past Surgical History: Orthopedic Surgery Additional Past Surgical History / Comment(s): RT 3RD FINGER Surgery. Past Anesthesia/Blood Transfusion Reactions: No Reported Reaction Past Psychological History: Anxiety Smoking Status: Light tobacco smoker Past Alcohol Use History: Occasional Past Drug Use History: Marijuana - Past Family History Mother Family Medical History: No Reported History General Exam Limitations: no limitations General appearance: alert, in no apparent distress, anxious Head exam: Present: atraumatic, normocephalic, normal inspection Eye exam: Present: normal appearance, PERRL, EOMI. Absent: scleral icterus, conjunctival injection, periorbital swelling ENT exam: Present: normal exam, mucous membranes moist Neck exam: Present: normal inspection. Absent: tenderness, meningismus, lymphadenopathy Respiratory exam: Present: normal lung sounds bilaterally. Absent: respiratory distress, wheezes, rales, rhonchi, stridor Cardiovascular Exam: Present: regular rate, normal rhythm, normal heart sounds. Absent: systolic murmur, diastolic murmur, rubs, gallop, clicks GI/Abdominal exam: Present: soft, normal bowel sounds. Absent: distended, tenderness, guarding, rebound, rigid Extremities exam: Present: normal inspection, full ROM, normal capillary refill. Absent: tenderness, pedal edema, joint swelling, calf tenderness Back exam: Present: normal inspection Neurological exam: Present: alert, oriented X3, CN II-XII intact Psychiatric exam: Present: normal affect, normal mood Skin exam: Present: warm, dry, intact, normal color. Absent: rash Course Vital Signs 03/22/21 04:07 Temperature 99.9 F H Pulse Rate 88 Respiratory 20 Rate Blood Pressure 112/79 O2 Sat by Pulse 97 Oximetry - Reevaluation(s) Reevaluation #1: 03/22/21 04:57 Medical record is reviewed Reevaluation #2: 03/22/21 05:44 Patient informed of results and questions answered Reevaluation #3: 03/22/21 05:44 Symptoms improved here in the ER Medical Decision Making - Medical Decision Making 40 male to the ER today for evaluation patient patient Dese for evaluation regards to body aches pains chills sore throat. Patient with a breast for infection will place on antibiotics for sinusitis and can be discharged home - Lab Data Lab Results 03/22/21 Range/Units 04:12 Coronavirus (PCR) Not Detected (Not Detectd) - Radiology Data Radiology results: report reviewed (Chest x-rays negative for acute disease), image reviewed Disposition Clinical Impression: Upper respiratory infection Disposition: HOME SELF-CARE Condition: Good Instructions (If sedation given, give patient instructions): Upper Respiratory Infection (ED) Prescriptions: Azithromycin [Zithromax Z-pack (6 tabs)] 0 mg PO DIRECTED 5 Days #6 tab Is patient prescribed a controlled substance at d/c from ED?: No Referrals: Pawan Quintana Jr, DO [Primary Care Provider] - 1-2 days
--- NOTE | 2021-03-22 05:08 | XR ---
EXAMINATION TYPE: XR chest 1V portable DATE OF EXAM: 03/22/2021 COMPARISON: 03/14/2020 HISTORY: Headache and cough TECHNIQUE: FINDINGS: Heart and mediastinum are normal. Lungs are clear. Diaphragm is normal. Bony thorax appears normal. IMPRESSION: Normal chest. No change.
[2021-03-22] MEDS ORDERED: AZITHROMYCIN 500 MG TAB PO STA (05:43)
[2021-03-22 06:28] VITALS: BP 109/72; PULSE 84; RESP 18; TEMP 99
== END 2021-03-22 06:28 | disposition home or self-care (01) ==
LOC: EC 04:01
DX: J06.9 Acute upper respiratory infection, unspecified (principal); F17.200 Nicotine dependence, unspecified, uncomplicated; Z91.041 Radiographic dye allergy status; Z20.822 Contact with and (suspected) exposure to COVID-19
CPT/HCPCS: 71045; 87635; 99283

== ENCOUNTER → 2021-10-02 | Outpatient (CLI) | payer OTHER ==
--- NOTE | 2021-10-02 21:42 | MR ---
MRI CERVICAL SPINE: CLINICAL HISTORY: Neck pain radiates down both arms into fingers. TECHNIQUE: Multiplanar, multisequence imaging of the cervical spine is performed without IV contrast. COMPARISON: Prior MRI cervical spine April 09, 2017. FINDINGS: Sagittal images of the cervical spine show the craniocervical junction to remain within nor mal limits. The cervical and upper thoracic spinal cord remains normal in caliber and signal. Revers al of normal cervical curvature centered at C6 vertebral body level is redemonstrated. The vertebral body and intravertebral disk heights remain normal. Symmetric changes Modic type II endplate changes at anterior C6-C7 level redemonstrated. Axial images at C2-C3 level remain within normal limits. Axial images at C3-C4 level redemonstrated uncovertebral facet degenerative changes bilaterally causi ng mild to moderate bilateral neural foraminal narrowing. No significant change from prior. Axial images at C4-C5 and C5-C6 levels remain within normal limits. Axial images at C6-C7 level and C7-T1 levels remain within normal limits. IMPRESSION: Stable reversal of normal cervical curvature. Stable degenerative changes C3-C4 level. No significant change or degenerative progression from 2017 MRI.
== END | disposition home or self-care (01) ==
LOC: RADMRIMAIN 19:01
PROVIDERS: ATTEND Orthopaedic Surgery Hand Surgery
DX: M50.31 Other cervical disc degeneration, high cervical region (principal)
CPT/HCPCS: 72141

== ENCOUNTER → 2022-08-15 | Outpatient (CLI) | payer OTHER ==
[2022-08-15 18:03] LABS: Basophils # (A) 0.07 X 10*3/uL (0.00-0.10); Basophils % (A) 1.1 %; Eosinophils # (A) 0.21 X 10*3/uL (0.04-0.35); Eosinophils % (A) 3.3 %; HCT 44.4 % (39.6-50.0); HGB 14.9 g/dL (13.0-17.0); Immature Grans, Automated 0.2 %; Lymphocytes # (A) 3.21 X 10*3/uL (0.90-5.00); Lymphocytes % (A) 50.3 %; MCH 30.8 pg (27.0-32.0); MCHC 33.6 g/dL (32.0-37.0); MCV 91.7 fL (80.0-97.0); Mean Platelet Volume 9.4 fL (9.5-12.2); Monocytes # (A) 0.69 X 10*3/uL (0.20-1.00); Monocytes % (A) 10.8 %; NRBC Per 100 WBC 0 /100 WBCS (0.0-0.0); Neutrophils # (A) 2.19 X 10*3/uL (1.80-7.70); Neutrophils % (A) 34.3 %; Platelet Count 360 X 10*3/uL (140-440); RBC 4.84 X 10*6/uL (4.40-5.60); RDW 12.4 % (11.5-14.5); WBC 6.38 X 10*3/uL (4.50-10.00)
[2022-08-15 18:14] LABS: Albumin 4.2 g/dL (3.8-4.9); Albumin/Globulin Ratio 1.64 (1.60-3.17); Anion Gap 7.9 mmol/L (10.00-18.00); BUN/Creat Ratio 12.41 Ratio (12.00-20.00); Blood Urea Nitrogen 11.8 mg/dL (9.0-27.0); Calcium 9.4 mg/dL (8.7-10.3); Carbon Dioxide 28.6 mmol/L (20.0-27.5); Globulin 2.6 g/dL (1.6-3.3); Non-African American GFR(CKD) 97.5 (60.0-200.0); Potassium 4.4 mmol/L (3.5-5.5); Total Bilirubin 0.6 mg/dL (0.30-1.20); Total Protein 6.8 g/dL (6.2-8.2)
[2022-08-15 18:30] LABS: INR 1.02 (0.90-1.11); Prothrombin Time 11.5 sec (9.9-11.9)
== END | disposition home or self-care (01) ==
LOC: LABPAT 12:31
PROVIDERS: ATTEND Orthopaedic Surgery
DX: Z01.812 Encounter for preprocedural laboratory examination (principal); M47.812 Spondylosis without myelopathy or radiculopathy, cervical region; M50.33 Other cervical disc degeneration, cervicothoracic region
CPT/HCPCS: 80053; 85025; 85610; 87070

== ENCOUNTER → 2022-08-20 | Outpatient (CLI) | payer OTHER | END | disposition home or self-care (01) | LOC: LABPAT 09:27 | PROVIDERS: ATTEND Orthopaedic Surgery | DX: Z01.812 Encounter for preprocedural laboratory examination (principal); R00.1 Bradycardia, unspecified | CPT/HCPCS: 93005 ==

== ENCOUNTER 2022-08-21 05:40 | Observation (INO) | payer OTHER ==
[2022-08-17 10:28] VITALS: BMI 21.8
[~2022-08-21 05:40] MED LIST: ACETAMINOPHEN TAB 500 MG TAB PO PRN; GABAPENTIN 300 MG CAP PO PRN; ONDANSETRON 4 MG/2 ML VIAL IVP PRN; TRANEXAMIC ACID IN NACL,ISO-OS 1,000 MG in SALINE 1 100ML.BAG IVPB PRN
[2022-08-21] MEDS ORDERED: LIDOCAINE 1% (10MG/ML) FOR IV START INTRADERMA PRN (06:03)
[2022-08-21] MEDS ORDERED: ONDANSETRON 4 MG/2 ML VIAL IVP ONE (06:03)
[2022-08-21] MEDS ORDERED: MIDAZOLAM 2 MG/2 ML VIAL IV PRN (06:03)
[2022-08-21] MEDS ORDERED: DEXAMETHASONE SOD PHOSPHATE 4 MG/ML 1 ML VIAL IV ONE (06:03)
[2022-08-21 06:42] LABS: Glucose,Whole Blood 109 mg/dL (70-110)
--- NOTE | 2022-08-21 06:45 | P.HPOR ---
History of Present Illness H&P Date: 08/10/22 .D:Date: 08/10/22 : 12:20pm .T:Title: [facility] Date of :[birth year] R14 Allergies: Age: 42 year Height: 6'2" Weight: 165 lbs BP:/ BMI: 21.18 kg/m2 Occupation: auto detail VAS: 7 CHIEF COMPLAINT: Cervical Pain DOI:Acute on Chronic Duration of current treatment regiment: 6 months HISTORY: Xrays No new films Trauma or injury yes (old injury from when he was ) Work-Related No Pain description sharp. Location posterior diffuse Patient notes that their pain radiates to bilateral upper extremities Activity Modification No Hand Dominance right TREATMENTS COMPLETED: 6 weeks of PT completed? Month and Year of last PT date? Patient could not tolerate outpatient physical therapy. Physician recommended home exercise completed? Duration of HEP course: yes Patient has trialed the physician directed home exercise program for without relief of their symptoms. Medications yes List: [place] and flexeril Alternative interventions Chiropractic:yes , exacerbated his symptoms. Tens unit with no relief Massage therapy: No R.I.C.E: No Brace: No Injections No RFA: No SUBJECTIVE: Mr. Alexandre returns to the office today for a recheck of his cervical pain and preoperative evaluation. Patient continues to report a sharp and shooting cervicalpain. In addition to their cervicalpain, they do report that it radiates into the bilateral upper extremities, associated with numbness and tingling through the bilateral forearms and hands. The patient does report that he does also have radicular pain in the left upper arm but denies this on the right side. Regarding his arms, in addition to his pain and symptoms he does also experience significant, somewhat transient weakness that significantly impacts his ability to lift heavy objects. Mr. Alexandre symptoms are exacerbated with most daily activities, due to this they notes that it is increasingly difficult for Mr. Alexandre to complete many of their daily tasks. For their symptoms, the patient has been taking [place] and Flexeril with mild relief. Patient feels they have exhausted all conservative measures at this time and would like to proceed with surgical intervention. Procedure risks and benefits have been discussed. Patient verbalizes understanding and states he has no questions or concerns. Otherwise the patient denies any f/c/sob/cp, no incision concerns, no bladder or bowel retention/incontinence, no perineal numbness/tingling, and ambulates independently. HPI: Mr. Alexandre was last seen on 07/05/22 regarding a recheck of their cervical pain. Patient reports a sharp and shooting cervical pain ongoing for years with no known injury or trauma to indicate an exact onset of their symptoms. In addition to their cervical pain, they do report that it radiates into the bilateral upper extremities, associated with numbness and tingling through the bilateral upper extremities. Overall the patient has seen a progressive increase in symptoms since their onset. Mr. Alexandre symptoms are exacerbated with most daily activities, due to this they notes that it is increasingly difficult for Mr. Alexandre to complete many of their daily tasks. Patient is having severe sleep disturbances as well due to their ongoing pain and associated symptoms. Regarding treatments, the patient has previously trialed the patient has previously trialed home exercises several times a week without any relief, along with chiropractics and outpatient physical therapy which exacerbated his symptoms, and injections with minimal relief. Patient denies trialing any other modalities at this time. For their symptoms, the patient has been taking [place]. Otherwise the patient denies any f/c/sob/cp, no incision concerns, no bladder or bowel retention/incontinence, no perineal numbness/tingling, and ambulates independently. On 02/08/2022 Mr. Alexandre presents to the office for cervical pain. Mr. Alexandre returns to the office for a recheck of his cervical pain. Patient reports a sharp and shooting cervical pain ongoing for years with no known injury or trauma to indicate an exact onset of their symptoms. In addition to their cervical pain, they do report that it radiates into the bilateral upper extremities, associated with numbness and tingling through the bilateral upper extremities. Overall the patient has seen a progressive increase in symptoms since their onset. Mr. Alexandre symptoms are exacerbated with most daily activities, due to this they notes that it is increasingly difficult for Mr. Alexandre to complete many of their daily tasks. Patient is having severe sleep disturbances as well due to their ongoing pain and associated symptoms. Regarding treatments, the patient has previously trialed the patient has previously trialed home exercises several times a week without any relief, along with chiropractics which exacerbated his symptoms, and injections with minimal relief. Patient denies trialing any other modalities at this time. For their symptoms, the patient has been taking [place]. Otherwise the patient denies any f/c/sob/cp, no incision concerns, no bladder or bowel retention/incontinence, no perineal numbness/tingling, and ambulates independently. Mr. Alexandre was last seen on 12/20/21 regarding his cervical pain. Patient reports a sharp cervicalpain ongoing for many years with an onset when he was [age] after lifting heavy trays an feeling a "pop" in his neck with associated sharp pain. Following this incident he has had several more accidents that have exacerbated his symptoms as well. In addition to their cervicalpain, they do report that it radiates into the bilateral upper extremities, associated with numbness and tingling through the bilateral forearms and hands. The patient does report that he does also have radicular pain in the left upper arm but denies this on the right side. regarding his arms, in addition to his pain and symptoms he does also experience significant, somewhat transient weakness that significantly impacts his ability to lift heavy objects. Overall the patient has seen a progressive increase in symptoms since their onset. Mr. Alexandre symptoms are exacerbated with most daily activities that make completion of his daily tasks very challenging, due to this they notes that it is increasingly difficult for Mr. Alexandre to complete many of their daily tasks. Patient is having severe sleep disturbances as well due to their ongoing pain and associated symptoms. Regarding treatments, the patient has previously trialed home exercises several times a week without any relief along with chiropractics which exacerbated his symptoms. Patient denies trialing any other modalities at this time. For their symptoms, the patient denies taking analgesics/anticoagulants/narcotics/BARBI- analogs. Otherwise the patient denies any f/c/sob/cp, no incision concerns, no bladder or bowel retention/incontinence, no perineal numbness/tingling, and ambulates independently. The patients' past social, medical, family, surgical history, as well as review of systems, have been reviewed. Please refer to the Neurosurgery History and Physical form that has been scanned in to our electronic medical record system. 16 points review of systems completed and as stated in HPI, all other systems reviewed are negative. Social History: Reviewed, see appropriate section of the chart for details. P3 Social History: Smoking: former smoker P3 Alcohol: currently drinks alcohol P3 Family History: Reviewed, see appropriate section of the chart for details. P2 Past Medical History: Reviewed, see appropriate section of the chart for details. P1 Current Medications: Rx: meloxicam 15 mg tablet Ref: 0 Instructions: take 1 tablet (15 mg) by oral route once daily Rx: [place] Ref: 0 P1 PHYSICAL EXAMINATION: General: Awake, alert, appropriate for age, in no acute distress. HEENT: No unusual neck masses around region of lateral neck triangle, thyroid, supraclavicular groove Heart: Regular rate and rhythm, normal S1, S2 and no murmur/gallop. Lungs: Clear to auscultation bilaterally with no use of accessory muscles. Extremities: Skin warm and dry without acute lesions, coloration, temperature, skin intact, no tenderness or erythema Integument: Hairy patches: ABSENT Dorsal skin dimples: ABSENT Cafe au lait spots: ABSENT Surgical incisions: NONE Palpation: Please see Pain drawing on Intake sheet for further detail. Midline spinal tenderness: No E6 Cervical Tenderness: No E6 Paralumbar tenderness: No E6 Parathoracic tenderness: No E6 Buttocks tenderness: No E6 Sacroiliac Tenderness: No POSTURAL and MUSCULO-SKELETAL EVALUATION: Coronal Balance: NEUTRAL Recumbent testing: Patient is able to lay flat on back Sagittal Balance: NEUTRAL Shoulder Profile: LEVEL Pelvic Girdle: LEVEL Neck ROM: RESTRICTED Lumbar ROM: UNRESTRICTED Shoulder ROM: Symmetrical Hip ROM: Symmetrical Knee ROM: Symmetrical Hands: Normal appearance, symmetrical Feet: Normal appearance, Symmetrical VASCULAR STATUS : LEFT RIGHT Wrist Pulses INTACT INTACT Pedal Pulses (Dors. pedis & post.tibialis) INTACT INTACT Color NORMAL NORMAL Edema Absent Absent NEUROLOGIC EXAMINATION: Mental Status:Awake and alert, fully oriented, with normal attention, concentration and memory, and fluent, appropriate speech. Cranial Nerves: I: Olfactory not tested. II: Visual acuity normal, no visual field deficit noted with confrontation. III,IV: Normal pupillary reflexes & intact extraocular movements without nystagmus. V,: Intact symmetrical facial sensation. VII: Intact symmetrical facial motor movement VIII: Hearing intact. IX,X: Intact gag, swallow, & normal voice. XI: Sternocleidomastoid, trapezius function intact. XII: Tongue midline with normal movements. L'hermitte's Sign: Negative / absent Spurling'Sign: Absent bilaterally. Cubital percussion test: Absent bilaterally. James-Tinel sign - Carpal region: Absent bilaterally. Straight Leg Raising: Absent bilaterally. Crossed straight leg raise: negative O8 MOTOR EXAM (0-5/5, N/T) UPPER EXTREMITY Shoulder Abduction Biceps Triceps Wrist Extension Hand Intrinsics Plywood Layup Line Core Layer Right 5/5 5/5 5/5 5/5 5/5 5/5 Left +4/5 +4/5 +4/5 +4/5 +4/5 +4/5 LOWER EXTREMITY Hip Flexion Knee Extension Knee Flexion DF PF EHL FHL Right 5/5 5/5 5/5 5/5 5/5 5/5 5/5 Left +4/5 +4/5 +4/5 +4/5 +4/5 +4/5 +4/5 REFLEXES(0-4/2, NT)Upper ExtremityLower Extremity Right 2 2 Left 2 2 Pathological Reflexes RIGH T LEFT James's Absent Present Clonus Absent Absent Babinski Absent Absent # Indicates mechanical impairment Muscle appearance: Symmetrical, without signs of atrophy or dystrophy. Sensory system (0-4, N/T) Test type RU DALIA RL LL Joint-Position 2 2 2 2 Vibration 2 2 2 2 Pain & LT sense 2 2 2 2 Dermatomal Deficit: None None None None Gait and Functional Evaluation: Ambulatory aids: Independent Romberg's test: Intact bilaterally Toe heel walk / heel-toe walk intact while maintaining satisfactory balance? yes Squatting/straightening w/o assistance to a min of 60 degree knee flexion? yes Single leg stance: intact Trendelenburg sign negative bilaterally Hand and finger dexterity intact bilaterally? yes Disdiadochokinesis examination negative bilaterally? yes General: Awake, alert, appropriate for age, in no acute distress. HEENT: No unusual neck masses around region of lateral neck triangle, thyroid, supraclavicular groove Heart: Regular rate and rhythm, normal S1, S2 and no murmur/gallop. Lungs: Clear to auscultation bilaterally with no use of accessory muscles. Extremities: Skin warm and dry without acute lesions, coloration, temperature, skin intact, no tenderness or erythema Integument: Hairy patches: ABSENT Dorsal skin dimples: ABSENT Cafe au lait spots: ABSENT Surgical incisions: NONE Palpation: Please see Pain drawing on Intake sheet for further detail. Midline spinal tenderness: No E6 Cervical Tenderness: No E6 Paralumbar tenderness: No E6 Parathoracic tenderness: No E6 Buttocks tenderness: No E6 Sacroiliac Tenderness: No POSTURAL and MUSCULO-SKELETAL EVALUATION: Coronal Balance: NEUTRAL Recumbent testing: Patient is able to lay flat on back Sagittal Balance: NEUTRAL Shoulder Profile: LEVEL Pelvic Girdle: LEVEL Neck ROM: RESTRICTED Lumbar ROM: UNRESTRICTED Shoulder ROM: Symmetrical Hip ROM: Symmetrical Knee ROM: Symmetrical Hands: Normal appearance, symmetrical Feet: Normal appearance, Symmetrical VASCULAR STATUS : LEFT RIGHT Wrist Pulses INTACT INTACT Pedal Pulses (Dors. pedis & post.tibialis) INTACT INTACT Color NORMAL NORMAL Edema Absent Absent NEUROLOGIC EXAMINATION: Mental Status:Awake and alert, fully oriented, with normal attention, concentration and memory, and fluent, appropriate speech. Cranial Nerves: I: Olfactory not tested. II: Visual acuity normal, no visual field deficit noted with confrontation. III,IV: Normal pupillary reflexes & intact extraocular movements without nystagmus. V,: Intact symmetrical facial sensation. VII: Intact symmetrical facial motor movement VIII: Hearing intact. IX,X: Intact gag, swallow, & normal voice. XI: Sternocleidomastoid, trapezius function intact. XII: Tongue midline with normal movements. L'hermitte's Sign: Negative / absent Spurling'Sign: Absent bilaterally. Cubital percussion test: Absent bilaterally. James-Tinel sign - Carpal region: Absent bilaterally. Straight Leg Raising: Absent bilaterally. Crossed straight leg raise: negative O8 MOTOR EXAM (0-5/5, N/T) UPPER EXTREMITY Shoulder Abduction Biceps Triceps Wrist Extension Hand Intrinsics Plywood Layup Line Core Layer Right 5/5 5/5 5/5 5/5 5/5 5/5 Left +4/5 +4/5 +4/5 +4/5 +4/5 +4/5 LOWER EXTREMITY Hip Flexion Knee Extension Knee Flexion DF PF EHL FHL Right 5/5 5/5 5/5 5/5 5/5 5/5 5/5 Left +4/5 +4/5 +4/5 +4/5 +4/5 +4/5 +4/5 REFLEXES(0-4/2, NT)Upper ExtremityLower Extremity Right 2 2 Left 2 2 Pathological Reflexes RIGHT LEFT James's Absent Present Clonus Absent Absent Babinski Absent Absent # Indicates mechanical impairment Muscle appearance: Symmetrical, without signs of atrophy or dystrophy. Sensory system (0-4, N/T) Test type RU DALIA RL LL Joint-Position 2 2 2 2 Vibration 2 2 2 2 Pain & LT sense 2 2 2 2 Dermatomal Deficit: C5 C56 None None Gait and Functional Evaluation: Ambulatory aids: Independent Romberg's test: Intact bilaterally Toe heel walk / heel-toe walk intact while maintaining satisfactory balance? yes Squatting/straightening w/o assistance to a min of 60 degree knee flexion? yes Single leg stance: intact Trendelenburg sign negative bilaterally Hand and finger dexterity intact bilaterally? yes Disdiadochokinesis examination negative bilaterally? yes RADIOGRAPHIC STUDIES: Multiview flexion and extension XRay taken on 07/04/2022 of Cervical Spine: New imaged comared to previous images. IMages reviewed with the patient. There is cervical kyphotic deformity that is centered around C5-6 and C6-7 due to severe spondylolysis, disc collapse and a mobile grade I spondylolisthesis of C5-6. Kyphosis measures around 25 deg past neutral. OC and C1-2 are stable and normal. There are no other deformities noted. There is some flattening of the normal thoracic kyphosis but this is likely compensatory due to the severe kyphosis of the cervical spine. No fractures. No lesions. Multiview flexion and extension XRay taken on 12/20/21 of Cervical Spine: IMages reviewed with the patient. There is cervical kyphotic deformity that is centered around C5-6 and C6-7 due to severe spondylolysis, disc collapse and a mobile grade I spondylolisthesis of C5-6. Kyphosis measures around 25 deg past neutral and is fixed. OC and C1-2 are stable and normal. There are no other deformities noted. There is some flattening of the normal thoracic kyphosis but this is likely compensatory due to the severe kyphosis of the cervical spine. No fractures. No lesions. MRI scan from 10/02/2021 of Cervical Spine:Images review with the patient. This is compared to an MRI from 2017 which shows cervical kyphotic deformity measuring around 12 deg past neutral. In comparison, this most recent MRI shows kyphotic deformity, that is not flexible around 26 degrees. This shows progressive deformity. Spondylosis is noted C5-7 with disc dessicaiton, disc height loss, modic endplate and VB changes as well as facet arthrosis at these levels lending to the kyphosis in the C spine. There is some moderate stenosis at these levels due to the deformity and tethering and draping of the cord over these levels due to the kyphotic deformity. No lesions are noted OC and C1-2 are stable. No fractures noted. PLAN: Based on my findings I suggest the following course of action: -I discussed treatment options with the patient, including operative and non- operative options, and they have elected to proceed with the following surgical procedure: cervical (C5-C7) anterior cervical discectomy and fusion (78985, 60970, 24707, [id number], [id number]) The indications, risks, benefits, and alternatives to surgery were discussed with the patient at length. Specifically (but not limited to) the risks of infection, stiffness, recurrence of symptoms, need for revision surgery, local numbness, neurovascular injury, and blood clots were discussed. The patient's q uestions were answered. The decision to proceed was made. Consent will be obtained for the procedure. -I recommended that the patient get a CT scan of his cervical spine. - Advised patient to continue with supplements, health maintenance, and home exercise programs. Patient expressed understanding and will continue with these modalities. IMPRESSION: It was my pleasure to have seen and examined Ruslan. I reviewed the patient's clinical syndrome, physical findings, and imaging studies during the appointment today. It is my impression that the patient has a diagnosis of. 1. C5-C7 spondylosis 2. C5-C7 cervical kyphotic deformity 26 deg past neutral, progressive 3. UE weakness with radiculopathy 4. Mechanical neck pain due to deformity .DX:Diagnosis: Cervical kyphosis : ICD10 = M40.202 / ICD9 = 737.10 / SNOMED = 113129923 .DX:Diagnosis: Cervical spondylosis : ICD10 = M47.812 / ICD9 = 721.0 / SNOMED = 757758340 .DX:Diagnosis: Cervical radiculopathy : ICD10 = M54.12 / ICD9 = 723.4 / SNOMED = [id number] Spine Surgery Risk Review Mr. Alexandre is presenting for evaluation of Neck pain, UE pain and weakness as well as fine motor issues. It was my pleasure to have seen and examined Mr. Alexandre. In our visit today we have had a chance to go over subjective complaints, physical examination findings and treatments including the natural course history without intervention and various interventional options. The patients imaging demonstrates: Multiview flexion and extension XRay taken on 07/04/2022 of Cervical Spine: Multiview flexion and extension XRay taken on 12/20/21 of Cervical Spine: IMages reviewed with the patient. There is cervical kyphotic deformity that is centered around C5-6 and C6-7 due to severe spondylolysis, disc collapse and a mobile grade I spondylolisthesis of C5-6. Kyphosis measures around 25 deg past neutral and is fixed. OC and C1-2 are stable and normal. There are no other deformities noted. There is some flattening of the normal thoracic kyphosis but this is likely compensatory due to the severe kyphosis of the cervical spine. No fractures. No lesions. MRI scan from 10/02/2021 of Cervical Spine:Images review with the patient. This is compared to an MRI from 2017 which shows cervical kyphotic deformity measuring around 12 deg past neutral. In comparison, this most recent MRI shows kyphotic deformity, that is not flexible around 26 degrees. This shows progressive deformity. Spondylosis is noted C5-7 with disc deification, disc height loss, modic endplate and VB changes as well as facet arthrosis at these levels lending to the kyphosis in the C spine. There is some moderate stenosis at these levels due to the deformity and tethering and draping of the cord over these levels due to the kyphotic deformity. No lesions are noted OC and C1-2 are stable. No fractures noted. On physical exam, Mr. Alexandre demonstrates: Patient reports a sharp and shooting cervical pain ongoing for years with no known injury or trauma to indicate an exact onset of their symptoms. In addition to their cervical pain, they do report that it radiates into the bilateral upper extremities, associated with numbness and tingling through the bilateral upper extremities. Overall the patient has seen a progressive increase in symptoms since their onset. Mr. Alexandre symptoms are exacerbated with most daily activities, due to this they notes that it is increasingly difficult for Mr. Alexandre to complete many of their daily tasks. Patient is having severe sleep disturbances as well due to their ongoing pain and associated symptoms. I have explained to the patient that as their condition progresses it will cause further neurological deficits and eventual paralysis. Based on the patients imaging, physical exam, and the rapid progression and disabling nature of their symptoms, at this time I recommend surgery in the form of a: cervical (C5-C7) anterior cervical discectomy and fusion ([id number], 74361, 01496, [id number], [id number]) I discussed the risk and benefits of this procedure at length with Mr. Alexandre . The patient and family agreed to considered pursuing the procedure abovementioned. Prior to surgery, she should follow up with her PCP (Cardio, ID, IM etc) for clearance. Questions were invited and answered, and the patient wishes to proceed as outlined below. Currently, I am recommendin.cervical (C5-C7) anterior cervical discectomy and fusion ([id number], 76803, 48111, [id number], 13446) 2.Follow up with PCP for surgical clearance 3.Review of surgical risks and benefits as well as an educational packet on the proposed surgical procedure. Risks: All surgical procedures come with inherent risks, including those related to positioning, anesthesia, intraoperative findings, and postoperative complications. It is important to understand that surgery does not come with any guarantee of a successful outcome as complications and adverse events are always possible. The patient was given a handout in office today discussing the surgical procedure and risks associated with the intervention, both of which were discussed with the patient. These risks include but are not limited to the following: * Experiencing same, different or even worse symptoms in back, neck, arms, or legs compared to before surgery. Requiring further surgery or other forms of treatment presently or at some time in the future at same or other levels of the intended spine surgery. On an extreme but fortunately relatively rare basis severe complication such as blindness, stroke, heart attack, temporary and/or permanent nerve injury, paralysis, coma, or may occur, sometimes without known explanation. Surgical complications may include but are not limited to risk of infection, fluid accumulation in the surgical dissection site, including a seroma or hematoma, that requires additional surgery, wound drainage, bleeding, new numbness or weakness, vision changes/loss, spinal fluid leakage, non-healing and/or infected incision, headaches, difficulty or inability to swallow, hoarseness, hemopneumothorax, pneumothorax, impotence, retrograde ejaculation, vaginal dryness; injury to nerves, spinal cord, blood vessels, lymphatics or other vital organs (i.e., bowel injury, injury to the great vessels); heterotopic bone formation; complications related to the hardware such as screws, rods, cages including misplaced hardware, device failure, instrumentation at the wrong spine level, hardware fracture/breakage, or hardware loosening; vertebral failure of the spinal column above or below the newly placed hardware; retained surgical instrumentations or devices and the need for further surgery. * Medical risks of the planned spine surgery include but are not limited to generalized Infections to the whole body or local areas outside of the surgical site (sepsis), heart attack, bleeding, anaphylaxis, meningitis, seizure, epilepsy, hearing loss, burn da silva, laceration of the head or other areas of the body, bruising, hypersensitivity of the skin, bladder over distension; allergic reaction; shoulder injury related to positioning; fat, blood and air clots to other areas of the body like heart, lungs, brain; failure of internal organs such as lungs, kidneys, liver and excessive ble eding. If blood transfusions are necessary, note that transfusions may cause intolerance reactions such as anaphylaxis or other complex reactions. Despite best efforts, the results of spine surgery might not heal in terms of bone, soft tissues such as skin, fascia, ligaments, and joints. Additionally, in order to achieve best possible results, spine surgery may be carried out beyond the initially planned levels and involve decompression, fusion including insertion of hardware at levels other than the original intended area of surgical interest change some portions of the procedure in order to ensure the best possible outcomes. With spine surgery and spinal fusion, there are different off label uses of instrumentation (devices, implants and hardware) as well as biological substances (bone morphogenic proteins, demineralized bone matrix) as well as using extra bone from allograft sources (i.e. cadaver bone) or autograft (iliac crest bone, ribs, or the spine itself). The patient has been given information about these practices and their inherent risks and benefits. [facility] is an educational center that serves as a training facility for neurosurgical and orthopedic [employer] and Nursing students. Physician assistants are medically trained surgical providers who function in the outpatient, inpatient, and operating room setting under the direct supervision of the attending surgeon. [facility] has multiple operating rooms with single and overlapping rooms running daily. They currently function under the required guidelines as produced by the [facility] Finance Committee with regards to the overlapping rooms and will continue to comply with changes to this policy as they occur. The requirements include and are complied with as follows: (1) the critical portions of the overlapping rooms will not occur at the same time, (2) the attending physician will be physically present during the critical portions of the procedure and immediately available during the entire case, and (3) a back-up attending is designated should the primary attending not be immediately available. The patient has had a chance to review all the listed information, has been given print outs detailing this information, and has had all his/her questions answered to their satisfaction. It was my pleasure to have seen and examined Mr. Alexandre. In our visit today we have had a chance to go over my understanding of our patient's current condition, the natural course history without intervention and various interventional options. Questions were invited and answered, and the patient wishes to proceed as outlined above. I have seen and examined the patient for 25 minutes and we have spent more than 50% of the time in repeat and detailed counseling about the patient's condition, its natural course history with out and as much as can be predicted with surgery and re-review of various surgical treatment options. In conclusion, Mr. Alexandre and and family requested we proceed with the above suggested surgery and are willing to accept risks and limitations of the suggested surgery as nature of the disease process and our best attempts at treatment for the condition. Thank you again for allowing us to be part of your patient's care. Please don't hesitate to contact me if you have any further questions. Follow- up: Post procedure Patient Education: (Informational booklet, instructions, etc) given at today's appointment: Yes .ED:Patient Education: Y Medications Reviewed: YES In our visit today Mr. Alexandre and I have had a chance to go over my understanding of the patient's current condition, the natural course history without intervention and various interventional options. Questions were invited and answered, and the patient wishes to proceed as outlined above. Signed and authenticated by: Hiren Hinkle [facility] [address] [place] [address] [address] [address] This message is confidential, intended only for the named recipient(s) and may contain information that is privileged or exempt from disclosure under applicable law. If you are not the intended recipient(s), you are notified that the dissemination, distribution or copying of this information is strictly prohibited. If you received this message in error, please notify the sender then delete this message. CC: Yassine Kyle M.D. 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 PAIN IN UPPER BACK ALSO. OCC NUMBNESS IN ALL EXTERMITIES. LEFT FOOT INJURY- PER PT HE HAS A MASS INBETWEEN HIS TOES. History of Any Multi-Drug Resistant Organisms: None Reported Past Surgical History: Orthopedic Surgery Additional Past Surgical History / Comment(s): RT 3RD FINGER Surgery. Past Anesthesia/Blood Transfusion Reactions: No Reported Reaction Additional Past Anesthesia/Blood Transfusion Reaction / Comment(s): Severe and frequent motion sickness. Additional Psychological History / Comment(s): NO CURRENT PROBLEMS Smoking Status: Light tobacco smoker Past Alcohol Use History: Occasional Additional Past Alcohol Use History / Comment(s): SMOKED ELECTRONIC CIGARETTES IN PAST, QUIT 2007; NOW SMOKING CIGARETTES, 1/2 PPD. CURRENTLY 12 OR LESS BEER WEEKLY-DOWN FROM 15 BEER DAILY. Additional Drug Use History / Comment(s): QUIT 07/2017 - Past Family History Mother Family Medical History: No Reported History Medications and Allergies Home Medications Medication Instructions Recorded Confirmed Type Cyclobenzaprine [Flexeril] 5 mg PO TID PRN 08/17/22 08/17/22 History HYDROcodone/APAP 7.5-325MG [[place] 1 tab PO TID PRN 08/17/22 08/17/22 History 7.5-325] Allergies Allergy/AdvReac Type Severity Reaction Status Date / Time Iodinated Contrast Media AdvReac Nausea & Verified 08/21/22 06:25 [Iodinated Contrast- Oral Vomiting and IV Dye] Physical Examination Osteopathic Statement: *. No significant issues noted on an osteopathic structural exam other than those noted in the History and Physical/Consult.
[2022-08-21] MEDS: LACTATED RINGERS 1,000 ML IV SCH (06:51)
[2022-08-21] MEDS ORDERED: MIDAZOLAM 2 MG/2 ML VIAL ONE (07:23)
[2022-08-21] MEDS ORDERED: HYDROmorphone (PF) 1 MG/ML ONE (07:23)
[2022-08-21] MEDS ORDERED: TRANEXAMIC ACID IN NACL,ISO-OS 1,000 MG/100 ML BAG ONE (07:23)
[2022-08-21] MEDS ORDERED: ROCURONIUM 10 MG/ML (5 ML VIAL) IV ONE (07:23)
[2022-08-21] MEDS ORDERED: SUCCINYLCHOLINE CHLORIDE 200 MG/10 ML VIAL IV ONE (07:23)
[2022-08-21] MEDS ORDERED: GLYCOPYRROLATE 0.2 MG/ML 2 ML VIAL ONE (07:23)
[2022-08-21] MEDS ORDERED: fentaNYL (PF) 50 MCG/ML 2 ML AMP ONE (07:23)
[2022-08-21] MEDS ORDERED: KETAMINE 10 MG/ML 20 ML VIAL ONE (07:23)
[2022-08-21] MEDS ORDERED: NEOSTIGMINE 1 MG/ML 10 ML VIAL ONE (07:23)
[2022-08-21] MEDS ORDERED: LIDOCAINE 4% LTA KIT (4 ML) TOPICAL ONE (07:23)
[2022-08-21] MEDS ORDERED: PROPOFOL 10 MG/ML 20 ML VIAL IV ONE (07:23)
[2022-08-21] MEDS ORDERED: THROMBIN (BOVINE) 5,000 UNIT VIAL TOPICAL ONE (08:40)
[2022-08-21] MEDS ORDERED: GELATIN SPONGE,ABSORB (LARGE) 1 EACH SPONGE TOPICAL ONE (08:40)
[2022-08-21] MEDS: HYDROmorphone 0.5 MG/0.5 ML SYRINGE IVP PRN ×4 (10:32→12:22)
--- NOTE | 2022-08-21 10:41 | XR ---
EXAMINATION TYPE: XR cervical spine limited DATE OF EXAM: 08/21/2022 COMPARISON: NONE HISTORY: Cervical fusion TECHNIQUE: Four views are submitted. FINDINGS: Intraoperative views demonstrate surgical change. ET tube noted. Overlying artifacts seen. Hypertroph ic change of the spine. IMPRESSION: 1. Intraoperative findings..
--- NOTE | 2022-08-21 11:14 | FL ---
EXAMINATION TYPE: FL guidance operating room DATE OF EXAM: 08/21/2022 HISTORY: Fluoroscopy time DAP .8593 of fluoroscopy provided. IMPRESSION: 1. Fluoroscopy time.
[2022-08-21] MEDS ORDERED: MAGNESIUM HYDROXIDE 2,400 MG/10 ML CUP PO PRN (13:48)
[2022-08-21] MEDS ORDERED: HYDROmorphone 0.5 MG/0.5 ML SYRINGE IVP PRN (13:48)
[2022-08-21] MEDS ORDERED: HYDROcodone/APAP 10-325MG 1 EACH TAB PO PRN (13:48)
[2022-08-21] MEDS ORDERED: ONDANSETRON 4 MG/2 ML VIAL IVP PRN (13:48)
[2022-08-21] MEDS ORDERED: SENNOSIDES-DOCUSATE SODIUM 1 EACH TAB PO PRN (13:48)
[2022-08-21] MEDS ORDERED: HYDROcodone/APAP 7.5-325MG 1 EACH TAB PO PRN (13:52)
[2022-08-21] MEDS: GABAPENTIN 300 MG CAP PO SCH ×2 (16:36→22:08)
[2022-08-21] MEDS: CYCLOBENZAPRINE 10 MG TAB PO PRN (16:36)
[2022-08-21] MEDS ORDERED: hydrOXYzine HCL 25 MG TAB PO PRN (17:03)
[2022-08-21] MEDS: ACETAMINOPHEN TAB 325 MG TAB PO SCH (17:52)
--- NOTE | 2022-08-21 19:37 | CT ---
EXAMINATION TYPE: CT cervical spine wo con CT DLP: 435.6 mGycm, Automated exposure control for dose reduction was used. DATE OF EXAM: 08/21/2022 6:52 PM COMPARISON: CT 10/04/2016 MRI 05/10/2015. CLINICAL INDICATION:Male, 42 years old with history of s/p cervical fusion; post op cervical sx TECHNIQUE: Axial CT images from the skull base to the inferior aspect of T2 we obtained without intra venous contrast. Coronal and sagittal reformatted images were also reviewed. FINDINGS: Fracture: None. Osseous structures: Postsurgical changes with anterior fixation extending from C5, C6 and C7. Hardwar e appears intact. Discectomy at C5-C6 and C6-C7. Scattered foci of gas are seen in the surgical bed. There is no evidence of fracture. The spinal canal appears patent. Drainage catheter within the surgi clari bed. Vertebral alignment: Alignment within normal limits. Spinal canal/Neural Foramina: No evidence of significant spinal canal narrowing. No evidence for sign ificant neural foraminal stenosis. Neck soft tissues: Postsurgical changes of the prevertebral soft tissues. Other: The airway is patent. The lung apices are clear. IMPRESSION: Postsurgical changes without evidence of immediate post operative complication.
[2022-08-21] MEDS: HYDROmorphone 1 MG/ML 1 ML SYRINGE IVP PRN (20:24)
[2022-08-22] MEDS: HYDROmorphone 1 MG/ML 1 ML SYRINGE IVP PRN ×3 (00:18→20:07)
[2022-08-22] MEDS: CYCLOBENZAPRINE 10 MG TAB PO PRN (00:19)
[2022-08-22] MEDS: ACETAMINOPHEN TAB 325 MG TAB PO SCH ×5 (00:21→23:31)
[2022-08-22] MEDS: LACTATED RINGERS 1,000 ML IV SCH (05:42)
--- NOTE | 2022-08-22 07:50 | P.PN ---
Subjective Progress Note Date: 08/22/22 Principal diagnosis: 1. C5-C7 spondylosis 2. C5-C7 cervical kyphotic deformity 26 deg past neutral, progressive 3. UE weakness with radiculopathy 4. Mechanical neck pain due to deformity Patient seen and examined this morning. Patient is resting comfortable in bed. He does have complaint of increased pain in his cervical spine. Medications have been adjusted. Surgical dressing is clean dry and intact with EL present. Patient does report that bilateral upper extremity numbness and tingling is completely resolved since procedure. Encouraged patient to continue work with physical therapy today. Patient has been afebrile, denies nausea/vomiting, or chest pain. Objective - Vital Signs Vital signs: Vital Signs Temp 98.7 F 08/22/22 02:06 Pulse 78 08/22/22 02:06 Resp 15 08/22/22 02:06 BP 111/70 08/22/22 02:06 Pulse Ox 95 08/22/22 02:06 FiO2 Intake & Output 08/21/22 08/22/22 08/22/22 18:59 06:59 18:59 Intake Total 1950 Output Total 225 10 Balance 1725 -10 Weight 80.9 kg Intake: IV 1950 Output: Drainage 10 Anterior Neck 10 Urine 200 Estimated Blood Loss 25 Other: Voiding Method Toilet # Voids 2 2 - Exam Physical Examination General: The patient is awake and alert, in no acute distress Skin: Skin is warm and dry with no obvious rashes or lesions. Surgical incision to the anterior cervical region, dressing CDI with EL drain present. Eye: Pupils are equal, round and reactive to light, extra-ocular movements are intact; there is normal conjunctiva bilaterally. Neck: The neck is supple, there is moderate tenderness and limited ROM due to recent surgical procedure. Cardiovascular: There is a regular rate and rhythm. No murmur, rub or gallop is appreciated. Respiratory: Lungs are clear to auscultation, respirations are non-labored, breath sounds are equal. Gastrointestinal: Soft, non-distended, non-tender abdomen. Back: There is no tenderness to palpation in the midline, paralumbar, parathoracic or buttocks region. There is no obvious deformity . Musculoskeletal: ROM limited secondary to pain and stiffness from surgical procedure. Muscle strength in all major muscle groups of bilateral upper extremities 4+/5, bilateral lower extremities 5/5. Neurological: CN 2-12 intact. There are no obvious motor or sensory deficits. Movement and coordination equal and intact. Sensory exam to light touch intact C5-T1 and intact from L2-S1. Reflexes 2/4 in bilateral upper and lower extremities. Negative Hoffmans, babinski, and clonus signs. Psychiatric: Cooperative, appropriate mood & affect, normal judgment. Assessment and Plan Assessment: Postop day 1: C5-C7 ACDF 1. C5-C7 spondylosis 2. C5-C7 cervical kyphotic deformity 26 deg past neutral, progressive 3. UE weakness with radiculopathy 4. Mechanical neck pain due to deformity Plan: -Appreciate funeral pre need consultant and team management. -Activity: Ambulate QID, OOB all meals, up and about, limit lifting bending twisting to less than 5 lbs. Use walker or cane if needed for stability. -Daily PT/OT, increase ambulation strength and balance. -Brace when up and about, not needed in bed or chair -Pain control: Adequate at this time -Meds: reviewed -GI ppx: senna, Miralax -DVT PPX: OK to restart Heparin tonight -Hygiene: Shower today. Maintain dressing clean and dry. -Drains: Maintain for now. DC later today pending out put and PT -Encourage IS 10x/hr -Dispo: Anticipate discharge home in the next 48hrs with homecare *I reviewed and discussed this case with my attending Dr. Juarez, whom has reviewed this chart and films and is in agreement with assessment and plan of care as outlined above. I have personally seen and examined the patient, performed the documentation and the assessment and plan as written. Number of minutes spent on the visit: 15m.
[2022-08-22] MEDS: HYDROcodone/APAP 7.5-325MG 1 EACH TAB PO SCH ×4 (08:16→19:52)
[2022-08-22] MEDS: GABAPENTIN 300 MG CAP PO SCH ×3 (08:16→21:38)
[2022-08-22] MEDS: CYCLOBENZAPRINE 10 MG TAB PO SCH ×2 (08:16→15:57)
[2022-08-22 09:16] LABS: Basophils # (A) 0.1 k/uL (0-0.2); Basophils % (A) 1 %; Eosinophils # (A) 0.1 k/uL (0-0.7); Eosinophils % (A) 1 %; HCT 46.8 % (39.0-53.0); HGB 16.2 gm/dL (13.0-17.5); Lymphocytes # (A) 2.8 k/uL (1.0-4.8); Lymphocytes % (A) 26 %; MCH 31.1 pg (25.0-35.0); MCHC 34.5 g/dL (31.0-37.0); Mean Platelet Volume 7.1; Monocytes # (A) 1.2 k/uL (0-1.0); Monocytes % (A) 11 %; Neutrophils # (A) 6.5 k/uL (1.3-7.7); Neutrophils % (A) 60 %; Platelet Count 339 k/uL (150-450); RDW 12.5 % (11.5-15.5); WBC 10.8 k/uL (3.8-10.6)
[2022-08-22 09:46] LABS: African American GFR (CKD) >90 (>60 ml/min/1.73 sqM); Anion Gap 9 mmol/L; Blood Urea Nitrogen 8 mg/dL (9-20); Calcium 9.1 mg/dL (8.4-10.2); Carbon Dioxide 31 mmol/L (22-30); Chloride 99 mmol/L (98-107); Glucose 93 mg/dL (74-99); Non-African American GFR(CKD) >90 (>60 ml/min/1.73 sqM); Potassium 4.3 mmol/L (3.5-5.1); Sodium 139 mmol/L (137-145)
--- NOTE | 2022-08-22 15:30 | P.CONS ---
History of Present Illness - Reason for Consult Consult date: 08/22/22 Medical management anxiety Requesting physician: Hiren Juarez - Chief Complaint Status post anterior cervical dissection and fusion C5-7 - History of Present Illness This a 42-year-old gentleman status post anterior cervical dissection to make and fusion C5-7, postop day #1 ,surgical report pending. Tolerated procedure well. Complains of anxiety, pain, wearing cervical collar. Received hydroxyzine during the night for anxiety, lessened today. Consuming 50% with no nausea vomiting or diarrhea. Passing flatus. Denies numbness or tingling .Denies chest pain, palpitations or shortness of breath. Maintaining O2 sats in the high 90s on room air. Afebrile. Review of Systems Constitutional: Denied any fatigue denied any fever. Cardio vascular: denied any chest pain, palpitations Gastrointestinal denied any nausea vomiting Pulmonary: Denied any shortness of breath cough Neurologic denied any new focal deficits ROS Statement: Those systems with pertinent positive or pertinent negative responses have been documented in the HPI. ROS Other: All systems not noted in ROS Statement are negative. 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 PAIN IN UPPER BACK ALSO. OCC NUMBNESS IN ALL EXTERMITIES. LEFT FOOT INJURY- PER PT HE HAS A MASS INBETWEEN HIS TOES. History of Any Multi-Drug Resistant Organisms: None Reported Past Surgical History: Orthopedic Surgery Additional Past Surgical History / Comment(s): RT 3RD FINGER Surgery, cervical surgery 08/21/2022 Past Anesthesia/Blood Transfusion Reactions: No Reported Reaction, Motion Sickness Additional Past Anesthesia/Blood Transfusion Reaction / Comm: Severe and frequent motion sickness. Smoking Status: Former smoker - Past Family History Mother Family Medical History: No Reported History Medications and Allergies Home Medications Medication Instructions Recorded Confirmed Type Cyclobenzaprine [Flexeril] 5 mg PO TID PRN 08/17/22 08/17/22 History HYDROcodone/APAP 5-325MG [[place] 1 tab PO TID PRN 08/21/22 08/21/22 History 5-325] Allergies Allergy/AdvReac Type Severity Reaction Status Date / Time Iodinated Contrast Media AdvReac Nausea & Verified 08/21/22 06:25 [Iodinated Contrast- Oral Vomiting and IV Dye] Physical Exam Vitals: Vital Signs Temp Pulse Resp BP Pulse Ox 08/22/22 08:00 98.3 F 73 17 139/75 97 08/22/22 02:06 98.7 F 78 15 111/70 95 08/21/22 20:48 98.9 F 87 15 119/76 95 08/21/22 19:45 98.3 F 80 17 132/87 98 08/21/22 15:48 97.8 F 67 16 125/80 99 Intake and Output 08/22/22 08/22/22 08/22/22 06:59 14:59 22:59 Output Total 10 Balance -10 Output: Drainage 10 Anterior Neck 10 Other: # Voids 2 PHYSICAL EXAM: VITAL SIGNS: As above GENERAL: Sitting up in bed, no acute distress. HEENT: Conjunctivae normal. eyes normal. MMM. Wearing cervical collar. EL drain present. CARDIOVASCULAR: S1, S2 regular. No murmur RESPIRATION: Nonlabored, equal air entry, Breath sounds diminished in the bases. No rhonchi or crackles. No bronchial breathing. ABDOMEN: Soft, nondistended, nontender . No guarding. no masses palpable. No ascites, No hepatosplenomegaly.Bowel sounds heard. LEGS: No edema. no swelling PSYCHIATRY: Alert and oriented X3, mood and affect normal. NERVOUS SYSTEM: Cranial N 2-12 grossly normal. Moves all 4 limbs. No focal deficits. Strength and sensation grossly intact. Skin: Warm and dry, no rash Results CBC & Chem 7: 08/22/22 07:57 08/22/22 07:57 Labs: Abnormal Lab Results - Last 24 Hours (Table) 08/22/22 08/22/22 Range/Units 07:57 07:57 WBC 10.8 H (3.8-10.6) k/uL Monocytes # 1.2 H (0-1.0) k/uL Carbon Dioxide 31 H (22-30) mmol/L BUN 8 L (9-20) mg/dL Assessment and Plan Assessment: 1. C5-C7 spondylosis , status post anterior cervical dissection and fusion C5-7 2. Mechanical neck pain due to reported kyphotic deformity, C5-C7 3.UE weakness with radiculopathy Plan: Continue on current medication regime ,monitoring and symptomatic treatment. PT/OT. Pain management/DVT prophylaxis as per primary. Aggressive pulmonary toileting with incentive spirometer reinforced. Thank you for the consult. The impression and plan of care has been dictated as directed. : I performed a history and examination of this patient, discussed the same with the dictator. I agree with the dictator's note ,documented as a scribe. Any a dditional findings or plans will be noted.
[2022-08-22] MEDS: PANTOPRAZOLE 40 MG/10 ML VIAL IVP SCH (17:22)
[2022-08-22] MEDS ORDERED: HYDROcodone/APAP 10-325MG 1 EACH TAB PO SCH (21:15)
[2022-08-22] MEDS: diazePAM 5 MG TAB PO SCH (21:38)
[2022-08-22] MEDS: HYDROcodone/APAP 10-325MG 1 EACH TAB PO SCH (23:31)
[2022-08-23] MEDS: HYDROcodone/APAP 10-325MG 1 EACH TAB PO SCH ×3 (04:07→12:29)
[2022-08-23 04:25] VITALS: RESP 18
[2022-08-23] MEDS: ACETAMINOPHEN TAB 325 MG TAB PO SCH (05:51)
[2022-08-23] MEDS: LACTATED RINGERS 1,000 ML IV SCH ×2 (05:52→08:34)
[2022-08-23 07:38] VITALS: BP 158/81; PULSE 89; TEMP 97.8
--- NOTE | 2022-08-23 07:40 | P.PN ---
Subjective Progress Note Date: 08/23/22 Principal diagnosis: 1. C5-C7 spondylosis 2. C5-C7 cervical kyphotic deformity 26 deg past neutral, progressive 3. UE weakness with radiculopathy 4. Mechanical neck pain due to deformity Patient seen and examined this morning. Patient is currently resting in bed. Patient states he has been on multiple times using restroom and tolerating a ctivity well. He reports his pain is better managed under current regimen. Surgical dressing has been changed and EL drain has been removed. Hard cervical collar is intact. Patient continues to report improvement in his symptoms since procedure. He is looking forward to being discharged today. He has been afebrile, denies nausea/vomiting, or chest pain. Objective - Vital Signs Vital signs: Vital Signs Temp 97.6 F 08/23/22 02:08 Pulse 80 08/23/22 02:08 Resp 18 08/23/22 02:08 BP 114/72 08/23/22 02:08 Pulse Ox 95 08/23/22 02:08 FiO2 Intake & Output 08/22/22 08/23/22 08/23/22 18:59 06:59 18:59 Intake Total 580 Output Total 30 15 Balance -30 565 Intake: Intake, IV Titration 230 Amount Lactated Ringers 1,000 ml 180 @ 20 mls/hr IV .Q24H [facility] Rx#:[id number] ceFAZolin 2 gm In Sodium 50 Chloride 0.9% 50 ml @ 100 mls/hr IVPB Q8HR [facility] Rx# :[id number] Oral 350 Output: Drainage 30 15 Anterior Neck 30 15 Other: Voiding Method Toilet # Voids 1 1 1 - Exam Physical Examination General: The patient is awake and alert, in no acute distress Skin: Skin is warm and dry with no obvious rashes or lesions. Surgical incision to the anterior cervical region, dressing CDI. Eye: Pupils are equal, round and reactive to light, extra-ocular movements are intact; there is normal conjunctiva bilaterally. Neck: The neck is supple, there is moderate tenderness and limited ROM due to recent surgical procedure. Cardiovascular: There is a regular rate and rhythm. No murmur, rub or gallop is appreciated. Respiratory: Lungs are clear to auscultation, respirations are non-labored, breath sounds are equal. Gastrointestinal: Soft, non-distended, non-tender abdomen. Back: There is no tenderness to palpation in the midline, paralumbar, parathoracic or buttocks region. There is no obvious deformity . Musculoskeletal: ROM limited secondary to pain and stiffness from surgical procedure. Muscle strength in all major muscle groups of bilateral upper extremities 4+/5, bilateral lower extremities 5/5. Neurological: CN 2-12 intact. There are no obvious motor or sensory deficits. Movement and coordination equal and intact. Sensory exam to light touch intact C5-T1 and intact from L2-S1. Reflexes 2/4 in bilateral upper and lower extremities. Negative Hoffmans, babinski, and clonus signs. Psychiatric: Cooperative, appropriate mood & affect, normal judgment. - Labs CBC & Chem 7: 08/22/22 07:57 08/22/22 07:57 Labs: Abnormal Lab Results - Last 24 Hours (Table) 08/22/22 08/22/22 Range/Units 07:57 07:57 WBC 10.8 H (3.8-10.6) k/uL Monocytes # 1.2 H (0-1.0) k/uL Carbon Dioxide 31 H (22-30) mmol/L BUN 8 L (9-20) mg/dL Assessment and Plan Assessment: Postop day 2: C5-C7 ACDF 1. C5-C7 spondylosis 2. C5-C7 cervical kyphotic deformity 26 deg past neutral, progressive 3. UE weakness with radiculopathy 4. Mechanical neck pain due to deformity Plan: -Appreciate financial services consultant and team management. -Activity: Ambulate QID, OOB all meals, up and about, limit lifting bending twisting to less than 5 lbs. Use walker or cane if needed for stability. -Daily PT/OT, increase ambulation strength and balance. -Brace when up and about, not needed in bed or chair -Pain control: Adequate at this time -Meds: reviewed -GI ppx: senna, Miralax -DVT PPX: Heparin -Hygiene: Shower today. Maintain dressing clean and dry. -Encourage IS 10x/hr -Dispo: Anticipate discharge home today with homecare *I reviewed and discussed this case with my attending Dr. Juarez, whom has reviewed this chart and films and is in agreement with assessment and plan of care as outlined above. I have personally seen and examined the patient, performed the documentation and the assessment and plan as written. Number of minutes spent on the visit: 15m.
--- NOTE | 2022-08-23 07:50 | P.DS ---
Providers Date of admission: 08/22/22 08:03 Expected date of discharge: 08/23/22 Attending physician: Hiren Juarez DO Consults: 08/21/22 13:50 Consult Physician Routine Consulting Provider: Yassine Kyle Reason/Comments: medical management Do you want consulting provider notified?: Yes Primary care physician: Yassine Kyle Hospital Course: Hospital Course: The patient was evaluated preoperatively and found to have the diagnosis of cervical spondylosis. They underwent appropriate preoperative care and were willing to undergo the intended procedure. They underwent a successful C5-C7 ACDF, were recovered appropriately and sent to the floor. While on the floor they worked with physical therapy, occupational therapy and nursing to enhance their recovery experience. Their pain was well controlled through their stay and they were started on appropriate medications, DVT ppx modalities, activity and dietary needs. Daily labs were monitored closely, and transfusions were only used when necessary. Medicine as well as other consulting services have made their input and have helped with our team approach and multidisciplinary care. PT milestones have been met and passed and they have made the recommendation of on care for this patient and treating providers agree with this care path. The patient will be discharged home with appropriate medications, instructions and follow-up information and in stable condition. Patient Condition at Discharge: Good Plan - Discharge Summary Discharge Rx Participant: Yes New Discharge Prescriptions: New Gabapentin 300 mg PO TID #90 cap HYDROcodone/APAP 10-325MG [[place] 10-325] 1 tab PO Q4-6H PRN #56 tab PRN Reason: Pain cefaDROXiL [Duricef] 500 mg PO Q12HR 5 Days #10 cap Sennosides/Docusate Sodium [Senna Plus 8.6-50 mg Softgel] 1 each PO DAILY #20 capsule diazePAM [Valium] 5 mg PO TID PRN 14 Days #42 tab PRN Reason: Muscle Pain Discontinued Cyclobenzaprine [Flexeril] 5 mg PO TID PRN PRN Reason: Pain HYDROcodone/APAP 5-325MG [[place] 5-325] 1 tab PO TID PRN PRN Reason: Pain Discharge Medication List Gabapentin 300 mg PO TID #90 cap 08/23/22 [Rx] HYDROcodone/APAP 10-325MG [[place] 10-325] 1 tab PO Q4-6H PRN #56 tab 08/23/22 [Rx] Sennosides/Docusate Sodium [Senna Plus 8.6-50 mg Softgel] 1 each PO DAILY #20 capsule 08/23/22 [Rx] cefaDROXiL [Duricef] 500 mg PO Q12HR 5 Days #10 cap 08/23/22 [Rx] diazePAM [Valium] 5 mg PO TID PRN 14 Days #42 tab 08/23/22 [Rx] Follow up Appointment(s)/Referral(s): Yassine Kyle MD [Primary Care Provider] - 1 Week Hiren Juarez DO [Doctor of Osteopathic Medicine] - 2 Weeks Activity/Diet/Wound Care/Special Instructions: Spine Discharge and Recovery Instructions Date of Surgery: 08/21/2022 Diagnosis: Cervical spondylosis Procedure: C5-C7 ACDF Medications: See medication list All medication refills should be obtained through your primary care doctor or your clinic spine surgeon. Please discuss prescription refills at your follow up appointment. Do not call the hospital for medication refills. Dressing: Leave your dressing in place for a total of 5 days post operatively. Then you may remove your dressing and leave open to air. Keep the area clean and if not able to keep area clean, then cover with sterile gauze and tape. Showering: You may shower 3 days after your procedure allowing soap and water to run over incision. Do not scrub. Do not soak. Blot dry. Follow up: Please confirm a follow up appointment with your surgeon 3 weeks post operatively. Please make an appointment to follow up with your PCP in 1-2 weeks after surgery for evaluation 3 phase, 3-week plan POST OP WEEKS 1-3 1. Lifting/carrying/pushing/pulling limited to less than 5 pounds. 2. Do not sit for longer than 15 minutes at one time. Get up and walk around. Prolonged sitting is NOT advised. If you lay down, see if you can t olerate laying down on you front (belly side) 3. Walk for periods of 15 minutes = 1 mile but no longer; do it multiple times times each day. 4. Ice your low back after activity. POST OP WEEKS 3-6 1. Lifting limited to less than 20 pounds. 2. Do not sit for longer than 30 minutes at a time. Frequently change positions. Use a sit-to stand workstation or take frequent breaks from sitting if you have returned to work. 3. Walk for 30 minutes each day. If possible, do these three or more times a day POST OP WEEKS 6+ At your 6-week appointment we will give you a physical therapy referral to focus on a core stabilization and strengthening program. You should also work on leg & buttock strengthening, hamstring & quadriceps stretching, and continue a low impact aerobic activity program such as swimming, walking, or riding a stationary bicycle. During the initial 6 weeks after your surgery, you are at the highest risk of re-injuring your spine. You should generally avoid BLTs (bending, lifting and twisting combination motions) and follow the above guidelines to reduce the chance of reinjury. You can anticipate post op appointments in our office at approximately 3 weeks and 6 weeks after your surgery. INCISION CARE: If your incision is not draining you do NOT need to cover it with a dressing. Keep your incision clean, dry and intact. In most cases, we apply skin glue, blaire or sutures to the incision at the time of surgery. This will be like a crust or have the appearance of a scab and will fall off in time on its own. The stitches or blaire need to be removed at 3 weeks post op appointment. You may begin to shower 3 days after surgery (this allows the glue to phillips well). However, please avoid scrubbing the incision site or peeling off any of the skin glue. This will ensure optimal healing of y our incision. Also, during this time avoid soaking the incision area in water - this includes swimming pools, hot tubs or baths. No ointments, lotions or oils on the incision until your surgeon allows. Leave blaire, sutures or glue in place. Neurological dysfunction that comes on suddenly can also be a sign of a stroke. Below some common symptoms of a stroke are listed: B - balance difficulty such as sudden onset walking or leaning to one side - NEW E - eye problem such as sudden double vision or trouble seeing on one side - NEW F - Facial weakness or numbness on one side - NEW A - Arm or leg weakness or numbness on one side - NEW S - Slurred speech or difficulty with word finding - NEW T - Time is BRAIN! Call 911 as soon as you recognize these symptoms Diet: Consume a regular diet rich in vegetables and lean protein such as chicken or fish. You should consume in a ratio of approximately 20% fats|40% carbohydrates|40%protein. Vegetables, sweet potatoes, brown rice or quinoa are examples of good carbohydrates. Chips, white bread, cookies and sweets/sugar are examples of bad carbohydrates. Limit your bad carbs, go wild with good carbs. "Life's Simple 7" Guidelines as per [employer] These will help you reclaim your life after surgery and shop helper in your recovery, keeping in mind your restrictions. (1) Get Active. Physical activity can help people lose weight, control high blood pressure and cholesterol, feel emotionally better, and sleep better. (2) Control Cholesterol. Avoid a diet high in saturated fat, trans fat, & cholesterol. Limit whole milk & cream, ice cream, butter, egg yolks, processed meats (like sausage and hot dogs), and fatty meats. Choose healthy foods that are low in saturated fat, trans fat and cholesterol which include: Fruits and vegetables, fiber rich grain products (like whole grain pasta and brown rice), lean meat such as chicken, fish, nuts, seeds, and legumes. (3) Eat Better. Eat small portions. Shop at the grocery with a list and do not stray from it. Tips for a healthy diet include: Limit sodium intake to less than 1500mg daily, avoid prepackaged, processed, and fast foods, choose a diet rich in fruits, vegetables, and whole grain, high fiber foods, and limit saturated & cholesterol in your diet. (4) Manage Blood Pressure. If you have high blood pressure, you should have a cuff at home so that you can check your blood pressure regularly. Be sure you have a good cuff. An arm one is generally better than a wrist one. Bring the cuff to a doctor's appointment to validate that the measurements that your cuff are taking are accurate. Take your blood pressure twice daily when you are sitting down and relaxing. Record the numbers in a log and bring this log with you to your doctors' appointments. (5) Lose Weight if your BMI is above 25. A healthy BMI is between 19-25. To calculate Your BMI, you may use a Standard BMI Calculator on the NIH BMI website: <www.nhlbi.nih.gov/guidelines/obesity/BMI/bmicalc.htm>. Weigh oneself daily. If you are overweight, set a goal to lose weight. A pound a week loss if needed is a good target. (6) Reduce Blood Sugar. Limit foods and liquids with "added sugars." (Added sugars include sucrose, fructose, glucose, maltose, dextrose, high fructose corn syrup, corn syrup, concentrated fruit juice and honey). (7) Stop Smoking. If you smoke, quitting smoking is one of the best things t hat you can do for your health. Smoking increases your risk of heart attack, stroke, and peripheral vascular disease, which is a build-up of plaque in your arteries. Please discard all the cigarettes and lighters in your house. Have a plan for what you will do when you have the urge to smoke. Direct and second- hand smoke shortens your life as well as the lives of your family, friends and others around you. For your health and the health of those around you, please consider quitting! Proper Bending Body Mechanics: Maintain a wide stance with one foot slightly in front of the other. Keep your back straight. Bend utilizing the strength in your hips and knees. Do not bend at the waist. Maintain the lifted object at your waist-level close to your body. Avoid lifting weight that causes immediately pain or pain anywhere in the body afterwards. Smoking/Nicotine If there was ever one thing that you could do to increase your overall health, decrease your risk of cardiovascular problems by about 39% the second you make the choice, it is to STOP SMOKING. Your body's most instant gratification is the second you stop smoking. We have all heard the studies, read the articles but it is true, smoking is extremely bad for your overall health, and moreover it is detrimental to your bone health. Nicotine, IN ANY FORM, kills bone cells, prevents your body from healing fractures, and significantly prolongs healing after surgery. In spine surgery specifically, it increases your risk of not healing your bones to create a fusion and increases your risk of having a revision surgery due to this up to 60%. I know it is hard. I know it feels impossible. But there are ways. Take control of your life. We are here to help you through it. And when you are ready, ask us and we can direct you to help if you desire. Use the START Plan to Quit Smoking (please visit the [employer] website listed below for more information): S = Set a quit date. Choose a date within the next 2 weeks, so you have enough time to prepare without losing your motivation to quit. If you mainly smoke at work, quit on the weekend, so you have a few days to adjust to the change. T = Tell family, friends, and co-workers that you plan to quit. Let your friends and family in on your plan to quit smoking and tell them you need their support and encouragement to stop. Look for a quit tomi who wants to stop smoking as well. You can help each other get through the rough times. A = Anticipate and plan for the challenges you'll face while quitting. Most people who begin smoking again do so within the first 3 months. You can help yourself make it through by preparing ahead for common challenges, such as nicotine withdrawal and cigarette cravings. R = Remove cigarettes and other tobacco products from your home, car, and work. Throw away all your cigarettes (no emergency pack!), lighters, ashtrays, and matches. Wash your clothes and freshen up anything that smells like smoke. Shampoo your car, clean your drapes and carpet, and steam your furniture. T = Talk to your doctor about getting help to quit. Your doctor can prescribe medication to help with withdrawal and suggest other alternatives. If you can't see a doctor, you can get many products over the counter at your local pharmacy or grocery store, including the nicotine patch, nicotine lozenges, and nicotine gum. Resources for Quitting Smoking: <https://www.[place]. ov/documents/[facility]/Quit_Tobacco_Resources_for_patients_313480_7.pdf> Supplementation: Take recommended dosages of Vitamin D and Calcium to help fortify your bones and help them to heal. See your health maintenance packet for dosages and recommended levels. DVT/VTE prophylaxis: You will be given compression stockings from the hospital. Wear these daily for the first two weeks after surgery. You may take them off at night. You may be prescribed a medication to help thin your blood. Take this as directed. If you are not prescribed this medication, early and frequent ambulation has been shown to be the best prophylaxis to deep vein thrombosis and sequelae related to this event. Discharge Disposition: HOME WITH HOME HEALTH SERVICES
[2022-08-23] MEDS: diazePAM 5 MG TAB PO SCH (08:22)
[2022-08-23] MEDS: GABAPENTIN 300 MG CAP PO SCH (08:22)
[2022-08-23] MEDS: PANTOPRAZOLE 40 MG/10 ML VIAL IVP SCH (08:24)
[2022-08-23] MEDS ORDERED: ACETAMINOPHEN TAB 325 MG TAB PO SCH (12:00)
--- NOTE | 2022-08-24 08:08 | P.OP ---
Date of Procedure: 08/21/22 Preoperative Diagnosis: 1. Cervical kyphotic deformity 2. 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 Mechanical neck pain Postoperative Diagnosis: 1. Cervical kyphotic deformity 2. 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 Mechanical neck pain Procedure(s) Performed: 1. C5-6 and C6-7 anterior cervical arthrodesis (43727, 00249) 2. Application of 3 segment anterior non integrated plate and screws (77500) 3. Insertion of biomechanical device C5-6, C6-7 ([id number]) Use of IONM Use of IOMicroscope Implants: -[place] plate and cages x2 cages 3 level plate -MagnatOs Anesthesia: JILLIANA Surgeon: Hiren Juarez Monomer Recovery Supervisor #1: Tony Jesus (Was present and assisted with all aspects of the case from positioning to dressing placement) Estimated Blood Loss (ml): 25 IV fluids (ml): 500 Urine output (ml): 250 Pathology: none sent Condition: stable Disposition: PACU Indications for Procedure: Mr. Alexandre is presenting for evaluation of Neck pain, UE pain and weakness as well as fine motor issues. It was my pleasure to have seen and examined Mr. Alexandre. In our visit today we have had a chance to go over subjective complaints, physical examination findings and treatments including the natural course history without intervention and various interventional options. The patients imaging demonstrates: Multiview flexion and extension XRay taken on 07/04/2022 of Cervical Spine: Multiview flexion and extension XRay taken on 12/20/21 of Cervical Spine: IMages reviewed with the patient. There is cervical kyphotic deformity that is centered around C5-6 and C6-7 due to severe spondylolysis, disc collapse and a mobile grade I spondylolisthesis of C5-6. Kyphosis measures around 25 deg past neutral and is fixed. OC and C1-2 are stable and normal. There are no other deformities noted. There is some flattening of the normal thoracic kyphosis but this is likely compensatory due to the severe kyphosis of the cervical spine. No fractures. No lesions. MRI scan from 10/02/2021 of Cervical Spine:Images review with the patient. This is compared to an MRI from 2017 which shows cervical kyphotic deformity measuring around 12 deg past neutral. In comparison, this most recent MRI shows kyphotic deformity, that is not flexible around 26 degrees. This shows progressive deformity. Spondylosis is noted C5-7 with disc deification, disc height loss, modic endplate and VB changes as well as facet arthrosis at these levels lending to the kyphosis in the C spine. There is some moderate stenosis at these levels due to the deformity and tethering and draping of the cord over these levels due to the kyphotic deformity. No lesions are noted OC and C1-2 are stable. No fractures noted. On physical exam, Mr. Alexandre demonstrates: Patient reports a sharp and shooting cervical pain ongoing for years with no known injury or trauma to indicate an exact onset of their symptoms. In addition to their cervical pain, they do report that it radiates into the bilateral upper extremities, associated with numbness and tingling through the bilateral upper extremities. Overall the patient has seen a progressive increase in symptoms since their onset. Mr. Alexandre symptoms are exacerbated with most daily activities, due to this they notes that it is increasingly difficult for Mr. Alexandre to complete many of their daily tasks. Patient is having severe sleep disturbances as well due to their ongoing pain and associated symptoms. I have explained to the patient that as their condition progresses it will cause further neurological deficits and eventual paralysis. Based on the patients imaging, physical exam, and the rapid progression and disabling nature of their symptoms, at this time I recommend surgery in the form of a: cervical (C5-C7) anterior cervical discectomy and fusion (87322, 11193, 11117, [id number], 38507) I discussed the risk and benefits of this procedure at length with Mr. Alexandre . The patient and family agreed to considered pursuing the procedure abovementioned. Prior to surgery, she should follow up with her PCP (Cardio, ID, IM etc) for clearance. Questions were invited and answered, and the patient wishes to proceed as outlined below. Currently, I am recommendin.cervical (C5-C7) anterior cervical discectomy and fusion (34749, 12210, 50090, [id number], 76558) Description of Procedure: C5-7 ACDF The patient was seen and examined in the preoperative area. All preoperative protocols were followed. Informed consent was obtained risks and benefits of the procedure were discussed at length. Risks including bleeding infection damage to the surrounding tissue and risk of reoperation were discussed with the patient. Risk of anesthesia up to and including was a discussed with the patient. These are outlined in the risk review. They were willing to accept these risks and all the risks of surgery. The patient was given a weight-based dose of antibiotics in the form of 2 g Ancef. The patient was seen and evaluated by the anesthesia team who deemed them fit for surgery. The site was marked, the patient was willing to proceed with the procedure. The patient was transferred to the operative suite by the Department of anesthesia. They were then drifted off to sleep by the department anesthesia and GETA was performed. The patient tolerated this well. Peres catheter was placed by nursing staff, a-traumatically. Once confirmation of lines and ventilation the patient was transferred to a Supine Ruben table very carefully. All bony prominences including wrists, elbows, axilla, chest, hips, and thighs, and feet were padded very well. Special attention was paid to the genitalia, and these were padded accordingly. SCDs were placed on bilateral lower extremities and were connected. Arms were well padded and placed at their side thumbs up. Once in position, again we confirmed good ventilation capabilities and that lines were running appropriately. The patients Cervical spine was then exposed. 1010s were placed outlining the incision site. Standard alcohol was used to clean the incision site and allowed to dry. C-arm was used to bio-codey the patient and confirm level for incision which was marked with a skin marker. Operative briefing was performed with all teams and everyone in agreement to proceed. The patient was then prepped and draped in a normal sterile fashion. Timeout was then performed, and all parties agreed with the procedure to be performed. Transverse skin incision was then made on the right side of the patients neck 3 cm and dissection taken down to the platysma which was split transversely. Sub platysma flap was made, and interval identified between SCM and medial structures. Omohyoid was visualized and protected. Blunt dissection taken down to the anterior cervical facia which was identified. Blunt prob was then placed and lateral image taken which confirmed levels for operation. These levels were then marked with a bovi. Subperiosteal dissection of the longissimus muscles were then done over these levels identifying uncovertebral joints bilaterally. Retractor was then placed deep to these muscles and held in place with a bed arm. Starting at C6-7, [place] pins were placed into C6 and C7 and gentle distraction taken out over the levels. Aden rongure used to remove disc material. Operating microscope brought in for visualization. Complete discectomy performed at this level with curette, rongure and pituitary. High speed alvin used to remove osteophytes anteriorly and posteriorly until PLL was identified. 6-0 up curette then used to identify the canal and resect the PLL. 2-0 and 3-0 Kerrison used then to remove PLL and disc herniation and performed b/l foraminotomies. Once good decompression accomplished, meticulous hemostasis was performed. Sizers were then placed under lateral fluoroscopy until the desired height and lordosis. Cage was then selected, packed with autograft and allograft and placed under lateral imaging. Once in good position it was tested and stable. Motors run before and after cage placement were stable. The wound was irrigated, and autograft placed lateral to the cage anteriorly for fusion. [place] pin was then removed from C7 and placed into C5. Gentle distraction taken out over C5-6 now. Complete discectomy done at C5-6 as described including decompression, b/l foraminotomies and PLL resection. Burring of endplates was minimal, osteophytes removed as described. Spacers were then sized and placed under lateral imaging. Cage selected, packed with graft and placed under lateral images. Once in position, meticulous hemostasis performed, and motors remained stable before and after cage placement. AP image confirmed good placement of cages. Wound was irrigated. A separate, non-integrated plate was then selected and sized under lateral image. The plate was then placed with screws. Fixed screws drilled into C7 b/l and screws placed. Then into C6 and finally C5 with variable screws. All locking mechanisms set, and all screws had good purchase. Final AP and lateral images taken confirmed good placement of hardware and good reduction and islam of height. The wound was then irrigated copiously with NSS. Surgicel placed deep in the wound. A deep drain placed out a separate incision and sewed into place. Layered closure then performed with 3-0 Vicryl in the platysma and sub-Q tissue. 4-0 Strata fix in the subcuticular tissue. The wound was then cleaned, and dried and skin glue placed. Once glue dried an Opifoam was placed. The patient was then transferred back to their hospital bed a-traumatically. The drain continued to hold suction. They were placed in a soft collar. They were then awakened by the department of anesthesia having tolerated the procedure well without complications.
== END 2022-08-23 12:58 | disposition home health service (06) ==
LOC: OR 05:40 → 4SSUR 10:13 → OR 08-22 08:03 → 4SSUR 08-22 08:03
PROVIDERS: ADMIT Orthopaedic Surgery; ATTEND Orthopaedic Surgery
DX: M47.22 Other spondylosis with radiculopathy, cervical region (principal); M43.12 Spondylolisthesis, cervical region; M50.13 Cervical disc disorder with radiculopathy, cervicothoracic region; M40.202 Unspecified kyphosis, cervical region; F41.9 Anxiety disorder, unspecified; K21.9 Gastro-esophageal reflux disease without esophagitis; G47.9 Sleep disorder, unspecified; F17.210 Nicotine dependence, cigarettes, uncomplicated; Z79.899 Other long term (current) drug therapy; Z91.041 Radiographic dye allergy status; Z98.890 Other specified postprocedural states
CPT/HCPCS: 97161; 86900; 86901; 80048; 85025; 86850; 72040; 72125; 22551; 22552; 22845; 22853 ×2; 20937; G0378 ×2; C1713; C1762; J2250; J0330; J2710; J0690 ×3; J2405; J3010; J1170 ×3; J2704; C9113 ×2

== ENCOUNTER 2022-09-10 17:17 | Emergency (ER) | payer OTHER ==
[2022-09-10] MEDS ORDERED: HYDROmorphone 1 MG/ML 1 ML SYRINGE IM STA (17:56)
--- NOTE | 2022-09-10 17:57 | ED ---
Back Pain HPI - General Chief Complaint: Back Pain/Injury Stated Complaint: low back pain Time Seen by Provider: 09/10/22 17:35 Source: patient, RN notes reviewed, old records reviewed Limitations: no limitations - History of Present Illness Initial Comments: This is a 42-year-old male to the emergency department for evaluation patient Dese for evaluation of back pain severe back pain. No trauma no fevers no loss of bowel or loss of bladder recent surgery recent surgery on his neck patient believes maybe not willing his neck is causing increase in his back pain back pain is chronic -: hour(s) Similar Symptoms Previously: Yes Place: home Radiation: none Severity: mild, severe Severity scale (1-10): 10 Quality: sharp Consistency: constant Improves With: none Associated Symptoms: denies other symptoms Treatments Prior to Arrival: prescription analgesics - Related Data Previous Rx's Medication Instructions Recorded Gabapentin 300 mg PO TID #90 cap 08/23/22 HYDROcodone/APAP 10-325MG [[place] 1 tab PO Q4-6H PRN #56 tab 08/23/22 10-325] Sennosides/Docusate Sodium [Senna 1 each PO DAILY #20 capsule 08/23/22 Plus 8.6-50 mg Softgel] cefaDROXiL [Duricef] 500 mg PO Q12HR 5 Days #10 cap 08/23/22 diazePAM [Valium] 5 mg PO TID PRN 14 Days #42 tab 08/23/22 Allergies Allergy/AdvReac Type Severity Reaction Status Date / Time Iodinated Contrast Media AdvReac Nausea & Verified 09/10/22 17:30 [Iodinated Contrast- Oral Vomiting and IV Dye] Review of Systems ROS Statement: Those systems with pertinent positive or pertinent negative responses have been documented in the HPI. ROS Other: All systems not noted in ROS Statement are negative. 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 PAIN IN UPPER BACK ALSO. OCC NUMBNESS IN ALL EXTERMITIES. LEFT FOOT INJURY- PER PT HE HAS A MASS INBETWEEN HIS TOES. History of Any Multi-Drug Resistant Organisms: None Reported Past Surgical History: Orthopedic Surgery Additional Past Surgical History / Comment(s): RT 3RD FINGER Surgery, cervical surgery 08/21/2022 Past Anesthesia/Blood Transfusion Reactions: No Reported Reaction, Motion Sickness Additional Past Anesthesia/Blood Transfusion Reaction / Comment(s): Severe and frequent motion sickness. Past Psychological History: Anxiety Smoking Status: Former smoker Past Alcohol Use History: None Reported Past Drug Use History: None Reported - Past Family History Mother Family Medical History: No Reported History General Exam Limitations: no limitations General appearance: alert, in no apparent distress Head exam: Present: atraumatic, normocephalic, normal inspection Eye exam: Present: normal appearance, PERRL, EOMI. Absent: scleral icterus, conjunctival injection, periorbital swelling ENT exam: Present: normal exam, mucous membranes moist Neck exam: Present: normal inspection. Absent: tenderness, meningismus, lymphadenopathy Respiratory exam: Present: normal lung sounds bilaterally. Absent: respiratory distress, wheezes, rales, rhonchi, stridor Cardiovascular Exam: Present: regular rate, normal rhythm, normal heart sounds. Absent: systolic murmur, diastolic murmur, rubs, gallop, clicks GI/Abdominal exam: Present: soft, normal bowel sounds. Absent: distended, tenderness, guarding, rebound, rigid Extremities exam: Present: normal inspection, full ROM, normal capillary refill. Absent: tenderness, pedal edema, joint swelling, calf tenderness Back exam: Present: normal inspection Neurological exam: Present: alert, oriented X3, CN II-XII intact Psychiatric exam: Present: normal affect, normal mood Skin exam: Present: warm, dry, intact, normal color. Absent: rash Course Vital Signs 09/10/22 09/10/22 09/10/22 17:25 20:13 21:29 Temperature 97.6 F 97.8 F 98.0 F Pulse Rate 65 78 69 Respiratory 18 16 18 Rate Blood Pressure 107/71 116/78 112/77 O2 Sat by Pulse 98 96 97 Oximetry - Reevaluation(s) Reevaluation #1: 09/10/22 19:34 Medical record is reviewed Reevaluation #2: 09/10/22 19:34 Patient symptoms are improved here in the ER Reevaluation #3: 09/10/22 19:34 Patient informed results and questions answered Reevaluation #4: 09/10/22 19:34 Was pt. sent in by a medical professional or institution? @ -no Did you speak to anyone other than the patient for history? @ -no Did you review nursing and triage notes? @ -agree Were old charts reviewed? @ -peior ED visits Differential Diagnosis? @ -no EKG interpreted by me (3pts min.)? @ -no X-rays interpreted by me (1pt min.)? @ -yes CT interpreted by me (1pt min.)? @ -no U/S interpreted by me (1pt. min.)? @ -no What testing was considered but not performed? (CT, X-rays, U/S, labs)? Why? @ -no What meds were considered but not given? Why? @ -no Did you discuss the management of the patient with other professionals? @ -no Did you reconcile home meds? @ -no Was smoking cessation discussed for >3mins.? @ -no Was critical care preformed (if so, how long)? @ -no Were there social determinants of health that impacted care today? How? (Homelessness, low income, unemployed, alcoholism, drug addiction, transportation, low edu. Level, literacy, decrease access to med. care, retirement, rehab)? @ -no Was there de-escalation of care discussed even if they declined? (Discuss DNR or withdrawal of care, Hospice)? @ -no What co-morbidities impacted this encounter? (DM, HTN, Smoking, COPD, CAD, Cancer, CVA, Hep., AIDS, mental health diagnosis, sleep apnea, morbid obesity)? @ -no Was patient admitted / discharged? @ -dc Undiagnosed new problem with uncertain prognosis? @ -no Drug Therapy requiring intensive monitoring for toxicity (Heparin, Nitro, Insulin, Cardizem)? @ -no Were any procedures done? @ -no Diagnosis/symptom? @ -back pain Acute, or Chronic, or Acute on Chronic? @ -chronic Uncomplicated (without systemic symptoms) or Complicated (systemic symptoms)? @ -uncomplicated Side effects of treatment? @ -no Exacerbation, Progression, or Severe Exacerbation] @ -no Poses a threat to life or bodily function? @ -no Reevaluation #5: 09/10/22 19:34 Differential Back Pain: Strain, zoster, cauda equina syndrome, epidural abscess, vertebral osteomyelitis, discitis, fracture, subluxation, disc herniation, DJD, spinal stenosis, dissection, AAA, pancreatitis, peptic ulcer disease, pyelonephritis, kidney stone, this is not meant to be an all-inclusive list. Medical Decision Making - Medical Decision Making 42 female to the emergency department with recent neck surgery, maybe some increased ability secondary to V also has back pain history of chronic back pain. At this time patient's pain is controlled we did do a computed tomography scan which is negative he can be discharged home - Lab Data Lab Results 09/10/22 Range/Units 19:31 Urine Color Yellow Urine Appearance Clear (Clear) Urine pH 7.0 (5.0-8.0) Ur Specific [place] 1.012 (1.001-1.035) Urine Protein Negative (Negative) Urine Glucose (UA) Negative (Negative) Urine Ketones Negative (Negative) Urine Blood Negative (Negative) Urine Nitrite Negative (Negative) Urine Bilirubin Negative (Negative) Urine Urobilinogen <2.0 (<2.0) mg/dL Ur Leukocyte Esterase Negative (Negative) - Radiology Data Radiology results: report reviewed (CT LS spine is negative for acute disease), image reviewed Disposition Clinical Impression: Mid back pain, Mechanical back pain Disposition: HOME SELF-CARE Condition: Good Instructions (If sedation given, give patient instructions): Acute Low Back Pain (ED) Is patient prescribed a controlled substance at d/c from ED?: No Referrals: Yassine Kyle MD [Primary Care Provider] - 1-2 days Time of Disposition: 21:00
[2022-09-10 20:17] LABS: Appearance,Urine Clear (Clear); Bilirubin,Urine Negative (Negative); Blood,Urine Negative (Negative); Color,Urine Yellow; Glucose,Urine (UA) Negative (Negative); Ketones,Urine Negative (Negative); Leukocyte Esterase,Urine Negative (Negative); Nitrite,Urine Negative (Negative); Protein,Urine Negative (Negative); Specific Gravity,Urine 1.012 (1.001-1.035); Urobilinogen,Urine <2.0 mg/dL (<2.0)
--- NOTE | 2022-09-10 20:46 | CT ---
EXAMINATION TYPE: CT abdomen pelvis wo con DATE OF EXAM: 09/10/2022 HISTORY: ABDOMINAL PAIN. Sudden onset pain extending into back with extremity numbness. CT DLP: 557.7 mGycm. Automated Exposure Control for Dose Reduction was Utilized. TECHNIQUE: CT scan of the abdomen and pelvis is performed without oral or IV contrast. COMPARISON: CT October 04, 2016 FINDINGS: Within the limitations of a non-contrast study, the following observations are made. LUNG BASES: Dependent atelectasis bilaterally. Tiny pericardial effusion. LIVER/GB: No significant abnormality is appreciated. PANCREAS: No significant abnormality is seen. SPLEEN: No significant abnormality is seen. ADRENALS: No significant abnormality is seen. KIDNEYS: There are a few tiny nonobstructing left renal calculi including stable 3 mm calculus upper to midpole level axial image 39 redemonstrated. Stable 2.0 cm simple appearing thin-walled cyst media lly in the right kidney axial image 57. No right-sided nephrolithiasis. No hydronephrosis or obstruct ing ureteral calculi bilaterally. Mildly distended bladder without intraluminal calculus. Retroaortic left renal vein redemonstrated BOWEL: No significant abnormality is seen. GENITAL ORGANS: No gross abnormality seen. LYMPH NODES: Stable enlarged low dense mass probable lymph node measuring 1.7 x 1.0 cm axial image 54 in the aortocaval space. OSSEOUS STRUCTURES: Transitional type vertebra lumbosacral junction is redemonstrated. OTHER: No significant additional abnormality is seen. IMPRESSION: No suspicious new or acute findings evident on noncontrast CT to account for patient's sy mptoms.
[2022-09-10] MEDS ORDERED: ACET/COD 300 MG/30 MG STARTER PACK 6 TAB BTL PO STA (21:19)
[2022-09-10 21:31] VITALS: BP 112/77; PULSE 69; RESP 18; TEMP 98
== END 2022-09-10 21:31 | disposition home or self-care (01) ==
LOC: EC 17:17
DX: M54.6 Pain in thoracic spine (principal); M54.50 Low back pain, unspecified; Z87.891 Personal history of nicotine dependence; Z91.041 Radiographic dye allergy status
CPT/HCPCS: 81003; 74176; 99284; 96372; J1170

== ENCOUNTER 2022-12-03 11:20 | Emergency (ER) | payer OTHER ==
[2022-12-03 11:24] VITALS: TEMP 97.6
[2022-12-03] MEDS: IBUPROFEN 800 MG TAB PO STA ×2 (12:18→12:24)
[2022-12-03] MEDS ORDERED: KETOROLAC 15 MG/ML 1 ML VIAL IM STA (12:28)
--- NOTE | 2022-12-03 12:42 | ED ---
General Adult HPI - General Chief complaint: Recheck/Abnormal Lab/Rx Stated complaint: neck pain, post op Time Seen by Provider: 12/03/22 11:27 Source: patient, RN notes reviewed Mode of arrival: ambulatory Limitations: no limitations - History of Present Illness Initial comments: 42-year-old male with a past medical history significant for chronic neck pain and back pain presents to the emergency department with a chief complaint of neck pain. Patient reports that he had hardware placed by Dr. Mackey'yoel and approximately 3 months ago. Here ports worsening complications ever since reports that he feels like it's screws loose at the surgical site as he feels that sometimes hard to swallow. He reports that he has had a tremor symptoms surgery. Worsening pain. He didn't take the Rentz at home with mild symptomatically relief. Denies any known fevers, chills, low back pain, saddle paresthesia, loss of bowel or bladder function. Denies any trauma or injury. - Related Data Home Medications Medication Instructions Recorded Confirmed HYDROcodone/APAP 10-325MG [[place] 1 tab PO Q4H PRN 12/03/22 12/03/22 10-325] Allergies Allergy/AdvReac Type Severity Reaction Status Date / Time Iodinated Contrast Media AdvReac Nausea & Verified 12/03/22 12:04 [Iodinated Contrast- Oral Vomiting and IV Dye] Review of Systems ROS Statement: Those systems with pertinent positive or pertinent negative responses have been documented in the HPI. ROS Other: All systems not noted in ROS Statement are negative. 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 PAIN IN UPPER BACK ALSO. OCC NUMBNESS IN ALL EXTERMITIES. LEFT FOOT INJURY- PER PT HE HAS A MASS INBETWEEN HIS TOES. History of Any Multi-Drug Resistant Organisms: None Reported Past Surgical History: Orthopedic Surgery Additional Past Surgical History / Comment(s): RT 3RD FINGER Surgery, cervical surgery 08/21/2022 Past Anesthesia/Blood Transfusion Reactions: No Reported Reaction, Motion Sickness Additional Past Anesthesia/Blood Transfusion Reaction / Comment(s): Severe and frequent motion sickness. Past Psychological History: Anxiety Smoking Status: Former smoker Past Alcohol Use History: None Reported Past Drug Use History: None Reported - Past Family History Mother Family Medical History: No Reported History General Exam - General Exam Comments Initial Comments: General: Alert, in no acute distress Head: atraumatic normocephalic. Eyes PERRL, EOMI intact, mucous membranes moist , surgical scar appears well-healed on the right side of neck airway remained patent patient able the speak in full sentences limited range of motion secondary to pain Respiratory: Lungs clear to auscultation bilaterally Cardiovascular: Rate regular rate and rhythm Abdominal: Soft without guarding or rebound Extremities: Normal inspection with full range of motion and normal capillary refill Neuroogic: alert and oriented 3, CN II-XII intact, able to ambulate with steady gait Skin: warm dry and intact with normal color Limitations: no limitations Course Vital Signs 12/03/22 12/03/22 12/03/22 11:21 12:25 13:00 Temperature 97.6 F Pulse Rate 98 80 80 Respiratory 18 16 20 Rate Blood Pressure 133/84 130/84 97/70 O2 Sat by Pulse 95 98 99 Oximetry 12/03/22 14:59 Temperature Pulse Rate 68 Respiratory 16 Rate Blood Pressure 140/86 O2 Sat by Pulse 98 Oximetry - Reevaluation(s) Reevaluation #1: 12/03/22 12:25 Notified patient refusing Motrin at this time Medical Decision Making - Medical Decision Making Was pt. sent in by a medical professional or institution ([facility] Lay, HOME APPLIANCE W[employer]ING [employer]ACHINE MECH[employer]IC, urgent care, hospital, or [facility]...) When possible be specific @ -[No] Did you speak to anyone other than the patient for history (EMS, parent, family, police, friend...)? What history was obtained from this source @ -[No] Did you review nursing and triage notes (agree or disagree)? Why? @ -[I reviewed and agree with nursing and triage notes] Were old charts reviewed (outside hosp., previous admission, EMS record, old EKG, old radiological studies, urgent care reports/EKG's, [facility] records)? Report findings @ -[No old charts were reviewed] Differential Diagnosis (chest pain, altered mental status, abdominal pain women, abdominal pain men, vaginal bleeding, weakness, fever, dyspnea, syncope, headache, dizziness, GI bleed, back pain, seizure, CVA, palpatations, mental health, musculoskeletal)? @ -[not applicable] EKG interpreted by me (3pts min.). @ -[As above] X-rays interpreted by me (1pt min.). @ -Spine x-ray reveals hardware intact with no acute changes CT interpreted by me (1pt min.). @ -[None done] U/S interpreted by me (1pt. min.). @ -[None done] What testing was considered but not performed or refused? (CT, X-rays, U/S, labs)? Why? @ -[None] What meds were considered but not given or refused? Why? @ -[None] Did you discuss the management of the patient with other professionals (professionals i.e. , PA, HOME APPLIANCE WASHING MACHINE MECHANIC, lab, RT, psych nurse, social work therapist, family nurse, teacher, chief safety officer, assistant case manager)? Give summary @ -[No] Was smoking cessation discussed for >3mins.? @ -[No] Was critical care preformed (if so, how long)? @ -[No] Were there social determinants of health that impacted care today? How? (Homelessness, low income, unemployed, alcoholism, drug addiction, transportation, low edu. Level, literacy, decrease access to med. care, [facility] [facility], rehab)? @ -[No] Was there de-escalation of care discussed even if they declined (Discuss DNR or withdrawal of care, Hospice)? DNR status @ -[No] What co-morbidities impacted this encounter? (DM, HTN, Smoking, COPD, CAD, Cancer, CVA, ARF, Chemo, Hep., AIDS, mental health diagnosis, sleep apnea, morbid obesity)? @ -[None] Was patient admitted / discharged? Hospital course, mention meds given and route, prescriptions, significant lab abnormalities, going to OR and other pertinent info. @ -Discharged. This is a pleasant 42-year-old male who presents to the emergency department with a chief complaint of neck pain. Patient will thorough history and physical exam performed on the ED. Physical exam is essentially unremarkable. Heart rate regular rate and rhythm, lungs clear to auscultation bilaterally, abdomen soft nontender. There are no focal neuro deficits noted upon exam. Patient able to move all extremities freely. Patient lab work and imaging performed is essentially unremarkable. Discussed results in detail with the patient verbalized understanding all questions were addressed. She was given Toradol with symptomatic relief on the emergency department. She is agreeable with the plan for discharge home with return precautions discussed. Patient will be discharged home in stable condition case discussed with GUILLERMO Rhodes who agrees with plan of care Undiagnosed new problem with uncertain prognosis? @ -[No] Drug Therapy requiring intensive monitoring for toxicity (Heparin, Nitro, Insulin, Cardizem)? @ -[No] Were any procedures done? @ -[No] Diagnosis/symptom? @ -Neck Pain Acute, or Chronic, or Acute on Chronic? @ -Acute on Chronic Uncomplicated (without systemic symptoms) or Complicated (systemic symptoms)? @ -Uncomplicated Side effects of treatment? @ -[No] Exacerbation, Progression, or Severe Exacerbation? @ -[No] Poses a threat to life or bodily function? How? (Chest pain, [place], [place], pneumonia, PE, COPD, DKA, ARF, appy, cholecystitis, CVA, Diverticulitis, Homicidal, Suicidal, threat to staff... and all critical care pts) @ -Low Likelihood Disposition Clinical Impression: Neck pain Disposition: HOME SELF-CARE Condition: Stable Instructions (If sedation given, give patient instructions): Cervical Strain (ED), Neck Pain (ED) Additional Instructions: Follow-up with Dr. Shah and within 1-2 days Please return to the nearest emergency department if symptoms worsen or persist Is patient prescribed a controlled substance at d/c from ED?: No Referrals: Pawan Quintana Jr, DO [Primary Care Provider] - 1-2 days Hiren Juarez DO [Doctor of Osteopathic Medicine] - 1-2 days Time of Disposition: 13:42
--- NOTE | 2022-12-03 13:27 | XR ---
EXAMINATION TYPE: XR cervical spine comp DATE OF EXAM: 12/03/2022 COMPARISON: 10/18/2022 HISTORY: Pain TECHNIQUE: 5 views submitted FINDINGS: Postsurgical change at level C5-6 and C6-C7 with anterior fixation plate and disc spacers a ppear in near-anatomic alignment. Prevertebral soft tissue structures are within normal limits. Odontoid intact. Mild diffuse osteopeni a. There appears to be evidence of foraminal encroachment C6-C7. There is loss of the normal cervical lordosis. IMPRESSION: 1. Postsurgical changes are stable. 2. Foraminal encroachment C6-C7.
[2022-12-03] MEDS ORDERED: ONDANSETRON 4 MG ODT STARTER PACK 2 TAB BTL PO STA (14:27)
[2022-12-03 15:00] VITALS: BP 140/86; PULSE 68; RESP 16
== END 2022-12-03 14:59 | disposition home or self-care (01) ==
LOC: EC 11:20
DX: M54.2 Cervicalgia (principal); Z87.891 Personal history of nicotine dependence; Z91.041 Radiographic dye allergy status
CPT/HCPCS: 72050; 99283; 96372; J1885; S0119

== ENCOUNTER 2024-02-01 20:14 | Emergency (ER) | payer OTHER ==
[2024-02-01 20:21] VITALS: BP 108/73; PULSE 81; RESP 16; TEMP 98.4
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
== END 2024-02-01 20:30 | disposition home or self-care (01) ==
LOC: EC 20:14
CPT/HCPCS: 99281